=== PATIENT | male | born 1940 | race Caucasian/White ===

== ENCOUNTER 2017-04-13 17:24 | Inpatient (IN) | payer OTHER, MEDICARE ==
[~2017-04-13] VITALS: Ht 175.3 cm; Wt 98.1 kg
[2017-04-13 17:30] VITALS: BP 148/89; PULSE 78; RESP 20; TEMP 98.6; O2SAT 99
--- NOTE | 2017-04-13 18:43 | PD ---
HPI Chief Complaint: Psychiatric Symptoms Time Seen by Provider: 18:37 Travel History International Travel<30 days: No Contact w/Intl Traveler<30days: No Traveled to known affect area: No History of Present Illness HPI 76-year-old male that presents to the ED for evaluation of a correct. Patient was [place] acted by police after apparently he became agitated towards family members. Patient lives with daughter. Daughter believes the patient has early dementia as he has more forgetfulness and he cannot really take care of himself. He has some bruises to his elbow secondary to falls that he's had. He has chronic back pain and he is supposed to get shots on his back next week. He denies any other medical issues. Denies any head injury or loss of consciousness. He denies any suicidal or homicidal ideation. He was sent to [facility] and sent here for evaluation as per [facility] he was outside of their scope of practice. PFSH Past Medical History Medical History: Denies Significant Hx Social History Alcohol Use: No Tobacco Use: No Substance Use: No Allergies-Medications (Allergen,Severity, Reaction): Coded Allergies: No Known Allergies (Unverified , 04/13/17) Review of Systems Except as stated in HPI: all other systems reviewed are Neg Physical Exam Narrative GENERAL: SKIN: Warm and dry. HEAD: Atraumatic. Normocephalic. EYES: Pupils equal and round. No scleral icterus. No injection or drainage. ENT: No nasal bleeding or discharge. Mucous membranes pink and moist. Tongue is mildline. no uvula deviation. NECK: Trachea midline. No JVD. CARDIOVASCULAR: Regular rate and rhythm. No murmurs, S3, S4. RESPIRATORY: No accessory muscle use. Clear to auscultation. Breath sounds equal bilaterally. GASTROINTESTINAL: Abdomen soft, non-tender, nondistended. Hepatic and splenic margins not palpable. MUSCULOSKELETAL: Extremities without clubbing, cyanosis, or edema. No obvious deformities. Full ROM of the upper and lower extremities. 2+ pulses bilaterally. has abrasion and bruising to the elbows bilaterally. Left elbow does have yellow crusting. NEUROLOGICAL: Awake and alert. No obvious cranial nerve deficits. Motor grossly within normal limits. Five out of 5 muscle strength in the arms and legs. Normal speech. PSYCHIATRIC: Appropriate mood and affect; insight and judgment normal. Data Data Last Documented VS Vital Signs Date Time Temp Pulse Resp B/P Pulse Ox O2 Delivery O2 Flow Rate FiO2 04/13/17 19:15 18 04/13/17 17:30 98.6 78 148/89 99 Orders Complete Blood Count With Diff (04/13/17 17:40) Comprehensive Metabolic Panel (04/13/17 17:40) Psych Screen (04/13/17 17:40) Drug Screen, Random Urine (04/13/17 17:40) Alcohol (Ethanol) (04/13/17 17:40) Salicylates (Aspirin) (04/13/17 17:40) Tylenol (Acetaminophen) (04/13/17 17:40) Labs Laboratory Tests Test 04/13/17 17:55 White Blood Count 12.3 TH/MM3 Red Blood Count 3.99 MIL/MM3 Hemoglobin 14.5 GM/DL Hematocrit 41.0 % Mean Corpuscular Volume 103.0 FL Mean Corpuscular Hemoglobin 36.4 PG Mean Corpuscular Hemoglobin 35.4 % Concent Red Cell Distribution Width 12.1 % Platelet Count 174 TH/MM3 Mean Platelet Volume 8.2 FL Neutrophils (%) (Auto) 70.2 % Lymphocytes (%) (Auto) 16.2 % Monocytes (%) (Auto) 12.8 % Eosinophils (%) (Auto) 0.5 % Basophils (%) (Auto) 0.3 % Neutrophils # (Auto) 8.6 TH/MM3 Lymphocytes # (Auto) 2.0 TH/MM3 Monocytes # (Auto) 1.6 TH/MM3 Eosinophils # (Auto) 0.1 TH/MM3 Basophils # (Auto) 0.0 TH/MM3 CBC Comment DIFF FINAL Differential Comment Sodium Level 137 MEQ/L Potassium Level 3.7 MEQ/L Chloride Level 102 MEQ/L Carbon Dioxide Level 25.6 MEQ/L Anion Gap 9 MEQ/L Blood Urea Nitrogen 40 MG/DL Creatinine 1.53 MG/DL Estimat Glomerular Filtration 44 ML/MIN Rate Random Glucose 109 MG/DL Calcium Level 9.2 MG/DL Total Bilirubin 0.8 MG/DL Aspartate Amino Transf 54 U/L (AST/SGOT) Alanine Aminotransferase 35 U/L (ALT/SGPT) Alkaline Phosphatase 74 U/L Total Protein 7.3 GM/DL Albumin 3.3 GM/DL Salicylates Level 2.7 MG/DL Urine Opiates Screen NEG Acetaminophen Level LESS THAN 2.0 MCG/ML Urine Barbiturates Screen NEG Urine Amphetamines Screen NEG Urine Benzodiazepines Screen NEG Urine Cocaine Screen NEG Urine Cannabinoids Screen NEG Ethyl Alcohol Level LESS THAN 3 MG/DL MDM Medical Decision Making Medical Screen Exam Complete: Yes Emergency Medical Condition: Yes Medical Record Reviewed: Yes Interpretation(s) CBC & BMP Diagram 04/13/17 17:55 LFTS WNL Tox negative Differential Diagnosis Depression versus suicidal ideation versus anxiety versus adjustment disorder versus mood disorder versus bipolar disorder versus schizophrenia versus paranoid disorder versus psychosis versus substance abuse versus alcohol abuse versus alcohol induced psychosis versus homicidality addition versus cutting versus personality disorder Narrative Course 76-year-old male that presents to the ED for evaluation of psychiatric illness. Patient was properly examined and was found to have no signs of acute medical distress. Patient chronically uses a cane. Has chronic back pain. He does have abrasions to both of his elbows which appear to be old. Patient states that this is her from falls. The ones on the left arm do appear to be possibly infected. This time I will give prescription for keflex. Patient will be medically clear. Labs were drawn. Okay to be seen by psych. Mental health screening was discussed with the patient. Diagnosis Primary Impression: Aggressive behavior Anthony Morris Apr 13, 2017 18:42
[2017-04-13 18:52] LABS: AUTOMATED NEUTROPHIL # 8.6 TH/MM3 (1.8-7.7); BASOPHIL % 0.3 % (0.0-2.0); EOSINOPHIL # 0.1 TH/MM3 (0-0.4); EOSINOPHIL % 0.5 % (0.0-4.0); HEMO FLAGS DIFF FINAL; LYMPH % 16.2 % (9.0-44.0); MEAN CORPUSCULAR HEMOGLOBIN 36.4 PG (27.0-34.0); MEAN CORPUSCULAR HGB CONC 35.4 % (32.0-36.0); MONO % 12.8 % (0.0-8.0); NEUT % 70.2 % (16.0-70.0); PLATELET COUNT 174 TH/MM3 (150-450); RED BLOOD COUNT 3.99 MIL/MM3 (4.50-5.90); RED CELL DISTRIBUTION WIDTH 12.1 % (11.6-17.2); WHITE BLOOD COUNT 12.3 TH/MM3 (4.0-11.0)
[2017-04-13 18:54] LABS: ALT (GPT) 35 U/L (12-78); ANION GAP 9 MEQ/L (5-15); AST (GOT) 54 U/L (15-37); BICARBONATE 25.6 MEQ/L (21.0-32.0); BLOOD UREA NITROGEN 40 MG/DL (7-18); CHLORIDE 102 MEQ/L (98-107); GLOMERULAR FILTRATION RATE 44 ML/MIN (>89); POTASSIUM 3.7 MEQ/L (3.5-5.1); SODIUM (NA) 137 MEQ/L (136-145)
[2017-04-13 18:56] LABS: ALKALINE PHOSPHATASE 74 U/L (45-117); TOTAL BILIRUBIN ADULT 0.8 MG/DL (0.2-1.0)
[2017-04-13 19:07] LABS: ACETAMINOPHEN LESS THAN 2.0 MCG/ML (10.0-30.0); ALCOHOL LESS THAN 3 MG/DL (0-5)
[2017-04-13] MEDS ORDERED: DIVA500T PO (19:23)
[2017-04-13] MEDS ORDERED: FURO40TA PO (19:23)
[2017-04-13] MEDS ORDERED: ASPI81TA81 (19:23)
[2017-04-13] MEDS ORDERED: DIVALPROEX SODIUM (19:23)
[2017-04-13] MEDS ORDERED: SIMV40TA PO (19:23)
[2017-04-13] MEDS ORDERED: LISI2.5T3 PO (19:23)
[2017-04-13] MEDS ORDERED: POTASSIUM CL (19:23)
[2017-04-13] MEDS ORDERED: CEPH-460 PO (19:24)
[2017-04-13] MEDS ORDERED: MAGNESIUM HYDROXIDE SUSP 30 ML CUP PO PRN (20:00)
[2017-04-13] MEDS ORDERED: LORazepam 2 MG/ML VIAL IM PRN ×2 (20:00)
[2017-04-13] MEDS: NICOTINE 21 MG/24 HR PATCH T-DERMAL SCH (20:00)
[2017-04-13] MEDS ORDERED: ALUMINUM/MAGNESIUM/SIMETH 30 ML CUP PO PRN (20:00)
[2017-04-13] MEDS ORDERED: LORazepam 1 MG TAB PO PRN (20:00)
[2017-04-13] MEDS ORDERED: PILL SPLITTER OTHER PRN (20:00)
[2017-04-13 20:55] VITALS: BP 137/63; PULSE 73; RESP 18; TEMP 98.2
[2017-04-13] MEDS: LISINOPRIL 5 MG TAB PO SCH (23:07)
[2017-04-13] MEDS: CEPHALEXIN MONOHYDRATE 500 MG CAP PO SCH (23:07)
[2017-04-13] MEDS: DIVALPROEX DR 500 MG TABEC PO SCH (23:07)
[2017-04-13] MEDS: PRAVASTATIN SOD 80 MG TAB PO SCH (23:07)
[2017-04-13] MEDS: FUROSEMIDE 40 MG TAB PO SCH (23:09)
[2017-04-14] MEDS: CEPHALEXIN MONOHYDRATE 500 MG CAP PO SCH ×3 (05:55→20:18)
[2017-04-14 06:20] VITALS: BP 121/59; PULSE 69; RESP 18; TEMP 98.1; O2SAT 95
[2017-04-14] MEDS: DIVALPROEX DR 500 MG TABEC PO SCH ×2 (09:14→20:16)
[2017-04-14] MEDS: FUROSEMIDE 40 MG TAB PO SCH (09:14)
[2017-04-14] MEDS: LISINOPRIL 5 MG TAB PO SCH (09:15)
[2017-04-14] MEDS: NICOTINE 21 MG/24 HR PATCH T-DERMAL SCH (09:15)
[2017-04-14 11:32] LABS: ANION GAP 8 MEQ/L (5-15); BLOOD UREA NITROGEN 43 MG/DL (7-18); CHLORIDE 102 MEQ/L (98-107); GLOMERULAR FILTRATION RATE 58 ML/MIN (>89); HDL CHOLESTEROL 46.2 MG/DL (40.0-60.0); LDL CHOLESTEROL 53 MG/DL (0-99); SODIUM (NA) 137 MEQ/L (136-145)
[2017-04-14 11:33] LABS: POTASSIUM 3.9 MEQ/L (3.5-5.1)
[2017-04-14 17:25] LABS: HEMOGLOBIN F 0.8 %; HEMOGLOBIN LA1C 2.1 %
--- NOTE | 2017-04-14 17:32 | PD.CONS ---
HPI Service [facility] Consult Requested By Psychiatric team Reason for Consult Second opinion patient with hypertension, seizure history and hyperlipidemia Primary Care Physician Unknown Diagnoses: History of Present Illness Written by Pamela Sanchez, acting as scribe for Dr. Yanez on 04/14/17 at 17:17. This is a 76-year-old male patient with past medical history which includes hypertension, seizure disorder (last seizure one month ago) and hyperlipidemia. Patient is currently an inpatient psychiatric center we have been consulted for assistance with second opinion. Patient is a poor historian and information gathered from patient as well as prior computerized charting. Patient reports he has had a recent fall approximately 2-3 nights ago fell out of bed causing increased lower back pain. Patient denies loss of consciousness or head trauma during the fall. Patient reports he's been seeing an outpatient pain management doctor was supposed to begin spinal injections next week. Patient reports he is currently having lower back pain moderate in severity. Patient reports this is his baseline. Patient describes pain as constant and aching worse with certain movements. Patient denies urinary N or bowel incontinence. No focal weakness. Patient denies shortness of breath chest pain nausea vomiting diarrhea constipation fevers or chills. Review of Systems ROS Limitations: Poor Historian Except as stated in HPI: all other systems reviewed are Neg Past Family Social History Allergies: Coded Allergies: No Known Allergies (Unverified , 04/13/17) Past Medical History hypertension, seizure disorder and hyperlipidemia Past Surgical History Umbilical hernia repair Reported Medications Keflex (Cephalexin) 500 Mg Cap 500 Mg PO Q8H 10 Days Aspir-81 (Aspirin) 81 Mg Tabdr Simvastatin 40 Mg Tab 40 Mg PO HS Lisinopril 2.5 Mg Tab 2.5 Mg PO DAILY Furosemide 40 Mg Tab 40 Mg PO DAILY Divalproex DR (Divalproex Sodium) 500 Mg Tabdr 500 Mg PO BID [Divalproex Sodium] 500 Mg TID [Potassium Cl] 10 Meq Active Ordered Medications Current Medications Medications (Trade) Dose Ordered Sig/Juan Miguel Route Start Time Stop Time Status Last Admin (Keflex) 500 mg Q8HR PO 04/13/17 22:00 04/14/17 14:10 (Depakote Dr) 500 mg BID PO 04/13/17 21:00 04/14/17 09:14 (Lasix) 40 mg DAILY PO 04/13/17 20:00 04/14/17 09:14 (Prinivil) 2.5 mg DAILY PO 04/13/17 20:00 04/14/17 09:15 (Pravachol) 80 mg HS PO 04/13/17 21:00 04/13/17 23:07 (Ativan) 0.5 mg Q12H PRN PO 04/13/17 20:00 (Ativan Inj) 0.5 mg Q12H PRN IM 04/13/17 20:00 (Tylenol) 650 mg Q4H PRN PO 04/13/17 20:00 (Milk Of Magnesia Liq) 30 ml DAILY PRN PO 04/13/17 20:00 (Mag-Al Plus Susp Liq) 30 ml Q6H PRN PO 04/13/17 20:00 (Habitrol 21 Mg Patch.24 Hr) 1 patch DAILY T-DERMAL 04/13/17 20:00 04/14/17 09:15 (Pill Splitter) 1 ea UNSCH PRN OTHER 04/13/17 20:00 (Ultram) 50 mg Q8H PRN PO 04/14/17 17:00 UNV Family History Denies family medical history including diabetes heart disease or CVA Social History EtOH use occasional beer not on a daily basis Tobacco use one pack per day Denies illicit drug use Physical Exam Vital Signs Vital Signs Date Time Temp Pulse Resp B/P Pulse Ox O2 Delivery O2 Flow Rate FiO2 04/14/17 06:20 98.1 69 18 121/59 95 04/13/17 20:55 98.2 73 18 137/63 04/13/17 19:15 18 04/13/17 17:30 98.6 78 20 148/89 99 Physical Exam GENERAL: This is a well-nourished, well-developed patient, in no apparent distress. SKIN: Bilateral upper extremity scattered ecchymotic areas. Skin tear left elbow with yellow crusting appearance HEAD: Atraumatic. Normocephalic. No temporal or scalp tenderness. EYES: Extraocular motions intact. No scleral icterus. No injection or drainage. ENT: Nose without bleeding, purulent drainage or septal hematoma. Throat without erythema, tonsillar hypertrophy or exudate. Uvula midline. Airway patent. NECK: Trachea midline. No JVD or lymphadenopathy. Supple, nontender, no meningeal signs. CARDIOVASCULAR: Regular rate and rhythm without murmurs, gallops, or rubs. RESPIRATORY: Clear to auscultation. Breath sounds equal bilaterally. No wheezes , rales, or rhonchi. GASTROINTESTINAL: Abdomen soft, non-tender, nondistended. No guarding. MUSCULOSKELETAL: Bilateral lower extremities 2+ pitting edema right greater than left NEUROLOGICAL: Awake and alert. No focal deficits appreciated. Motor and sensory grossly within normal limits. 4 out of 5 muscle strength in all muscle groups. Normal speech. Laboratory Laboratory Tests Test 04/13/17 04/14/17 17:55 09:37 White Blood Count 12.3 Red Blood Count 3.99 Hemoglobin 14.5 Hematocrit 41.0 Mean Corpuscular Volume 103.0 Mean Corpuscular Hemoglobin 36.4 Mean Corpuscular Hemoglobin 35.4 Concent Red Cell Distribution Width 12.1 Platelet Count 174 Mean Platelet Volume 8.2 Neutrophils (%) (Auto) 70.2 Lymphocytes (%) (Auto) 16.2 Monocytes (%) (Auto) 12.8 Eosinophils (%) (Auto) 0.5 Basophils (%) (Auto) 0.3 Neutrophils # (Auto) 8.6 Lymphocytes # (Auto) 2.0 Monocytes # (Auto) 1.6 Eosinophils # (Auto) 0.1 Basophils # (Auto) 0.0 CBC Comment DIFF FINAL Differential Comment Sodium Level 137 137 Potassium Level 3.7 3.9 Chloride Level 102 102 Carbon Dioxide Level 25.6 27.0 Anion Gap 9 8 Blood Urea Nitrogen 40 43 Creatinine 1.53 1.22 Estimat Glomerular Filtration 44 58 Rate Random Glucose 109 141 Calcium Level 9.2 9.0 Total Bilirubin 0.8 Aspartate Amino Transf 54 (AST/SGOT) Alanine Aminotransferase 35 (ALT/SGPT) Alkaline Phosphatase 74 Total Protein 7.3 Albumin 3.3 Salicylates Level 2.7 Urine Opiates Screen NEG Acetaminophen Level LESS THAN 2.0 Urine Barbiturates Screen NEG Urine Amphetamines Screen NEG Urine Benzodiazepines Screen NEG Urine Cocaine Screen NEG Urine Cannabinoids Screen NEG Ethyl Alcohol Level LESS THAN 3 Triglycerides Level 145 Cholesterol Level 128 LDL Cholesterol 53 HDL Cholesterol 46.2 Cholesterol/HDL Ratio 2.77 Result Diagram: 04/13/17 1755 04/14/17 0937 Assessment and Plan Assessment and Plan This is a 76-year-old male patient with past medical history which includes hypertension, seizure disorder and hyperlipidemia. Patient is currently an inpatient psychiatric center we have been consulted for assistance with second opinion. Patient is a poor historian and information gathered from patient as well as prior computerized charting. Patient reports he has had a recent fall approximately 2-3 nights ago fell out of bed causing increased lower back pain. Patient denies loss of consciousness or head trauma during the fall. Patient reports he's been seeing an outpatient pain management doctor was supposed to begin spinal injections next week. Patient reports he is currently having lower back pain moderate in severity. Patient reports this is his baseline. Patient describes pain as constant and aching worse with certain movements. Patient denies urinary or bowel incontinence. No focal weakness. Patient denies shortness of breath chest pain nausea vomiting diarrhea constipation fevers or chills. Adjustment disorder Management per psychiatric team Bilateral lower extremity edema Ultrasound bilateral lower extremities to rule out DVT Lower back pain chronic Start tramadol as needed for pain Recent fall Check CK Acute kidney injury versus chronic kidney disease creatinine 1.53 --> 1.22 Renal ultrasound Urinalysis C&S if indicated Hypertension- stable Continue lisinopril Monitor blood pressure dressing Seizure disorder Continue Divalproex Hyperlipidemia- chronic Continue simvastatin DVT prophylaxis encourage ambulation Discussed with patient nursing This note was transcribed by naveen Sanchez. I, Dr. Jah Pena personally performed the history, physical exam, and medical decision making; and confirmed the accuracy of the information in the transcribed note. Authenticated by Dr. Jah Pena on 04/14/17 at 17:36. Pamela Sanchez Apr 14, 2017 17:32 Jah Silva MD Apr 14, 2017 23:13
[2017-04-14 17:46] LABS: HEMOGLOBIN A1a 0.8 %; HEMOGLOBIN A1b 0.9 %
[2017-04-14 17:47] LABS: HEMOGLOBIN Ao 85.7 %; HEMOGLOBIN P3 5.1 %
[2017-04-14 18:10] VITALS: BP 130/60; PULSE 67; RESP 18; TEMP 97.7; O2SAT 86
[2017-04-14 19:06] LABS: CKMB 4.7 NG/ML (0.5-3.6)
[2017-04-14] MEDS: PRAVASTATIN SOD 80 MG TAB PO SCH (20:17)
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
[2017-04-15] MEDS: CEPHALEXIN MONOHYDRATE 500 MG CAP PO SCH ×3 (05:27→21:50)
[2017-04-15 06:18] VITALS: BP 129/63; PULSE 69; RESP 18; TEMP 97.4; O2SAT 95
[2017-04-15] MEDS: NICOTINE 21 MG/24 HR PATCH T-DERMAL SCH (09:00)
[2017-04-15] MEDS: DIVALPROEX DR 500 MG TABEC PO SCH ×3 (10:11→21:50)
[2017-04-15] MEDS: LISINOPRIL 5 MG TAB PO SCH (10:12)
[2017-04-15] MEDS: FUROSEMIDE 40 MG TAB PO SCH (10:12)
--- NOTE | 2017-04-15 12:15 | RADRPT ---
EXAM DATE/TIME: 04/15/2017 10:41 [place] COMPARISON: No previous studies available for comparison. INDICATIONS : Increased BUN/ Creatnine. MEDICAL HISTORY : Hypertension. Seizures. Glasses. SURGICAL HISTORY : Abdominal surgery. ENCOUNTER: Initial ACUITY: 1 day PAIN SCORE: 2/10 LOCATION: Bilateral flank MEASUREMENTS: RIGHT KIDNEY: 12.3 x 5.7 x 6.1 cm LEFT KIDNEY: 13.8 x 5.4 x 6.5 cm FINDINGS: RIGHT KIDNEY: Renal cortex is normal in thickness and echotexture. No hydronephrosis, stone, or mass. LEFT KIDNEY: Renal cortex is normal in thickness and echotexture. No hydronephrosis, stone, or mass. BLADDER: Was not visualized or evaluated and appears empty. CONCLUSION: 1. The kidneys are unremarkable in appearance. There is no hydronephrosis. 2. Bladder was not visualized or evaluated. Gen Giles MD on April 15, 2017 at 12:13 Board Certified Radiologist. This report was verified electronically.
--- NOTE | 2017-04-15 12:16 | RADRPT ---
EXAM DATE/TIME: 04/15/2017 10:51 [place] COMPARISON: US KIDNEY/RENAL/BLADDER, April 15, 2017, 10:41. INDICATIONS : Right leg swelling. MEDICAL HISTORY : Seizures. Hypertension. Glasses. SURGICAL HISTORY : Abdominal surgery. ENCOUNTER: Initial ACUITY: 1 day PAIN SCORE: 3/10 LOCATION: Right leg. TECHNIQUE: Venous ultrasound of the leg was performed from the inguinal ligament to the proximal calf. Real-aurelio e, color Doppler and spectral tracing, compression and augmentation techniques were used. FINDINGS: There is normal compressibility of the deep venous system from the inguinal region to the proximal ca lf. No echogenic clot is seen in the lumen of the common femoral, femoral, popliteal, and posterior tibial veins. There is a normal response of the venous system to proximal and distal augmentation an d respiration. CONCLUSION: 1. No DVT identified. Aime Marshall MD on April 15, 2017 at 12:14 Board Certified Radiologist. This report was verified electronically.
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
--- NOTE | 2017-04-15 16:48 | HHI.PYPN ---
Subjective Remarks Patient seen for follow-up, chart reviewed. Patient found sitting in hospital chair, states that he usually sleeps in a chair due to his chronic back pain and is unable to lie down. Patient reports a been feeling okay, denies any depressive manic or psychotic symptoms. Patient states that he is dissatisfied with his daughter stating that she blames him for everything. Patient unsure at this time with a he will be able to return back home to his and daughter and is considering perhaps moving up to [place] where he states he has a home. Patient denies SI, HI, AVH or delusions. Review of Systems Except as stated in HPI: all other systems reviewed are Neg Objective Alert: Yes [place]: Person, Place, Situation Mood: Calm Affect: Appropriate Memory Intact: Comment (impaired) Hallucinations: Other (denies) Delusions: No Delusion Type: Other (denies) Suicidal: Ideation (denies) Homicidal: Ideation (denies) Insight/Judgment Limited insight, fair impulse control and judgment Labs Labs reviewed. Test 04/15/17 10:26 Vitamin B12 Level 1710 PG/ML Folate GREATER THAN 20.0 NG/ML Vitals/IOs Vital Signs Date Time Temp Pulse Resp B/P Pulse Ox O2 Delivery O2 Flow Rate FiO2 04/15/17 06:18 97.4 69 18 129/63 95 Assessment & Plan Problem List: (1) DEMENTIA IN OTH DISEASES CLASSD ELSWHR W BEHAVIORAL DISTURB ICD Code: F02.81 Assessment & Plan Patient at this time has no behavioral dyscontrol since admission to the unit. Patient has a compliant with medications with no adverse drug reactions. No significant mood symptoms or psychotic symptoms noted. Patient to continue current treatment discharge planning in progress Justification for Cont. Inpt. Patient at risk for further decompensation if at lower level of care. Discharge Planning In progress Dane Angeles MD Apr 15, 2017 16:48
--- NOTE | 2017-04-15 18:59 | HHI.PR ---
Subjective Remarks Denies cp/sob ambulating with walker denies fevers and chills Objective Vitals Vital Signs Date Time Temp Pulse Resp B/P Pulse Ox O2 Delivery O2 Flow Rate FiO2 04/15/17 06:18 97.4 69 18 129/63 95 Result Diagram: 04/13/17 1755 04/14/17 0937 Imaging Last Impressions Renal Ultrasound 04/15/17 0000 Signed Impressions: Service Date/Time: Saturday, April 15, 2017 10:41 - CONCLUSION: 1. The kidneys are unremarkable in appearance. There is no hydronephrosis. 2. Bladder was not visualized or evaluated. Gen Giles MD Lower Extremity Ultrasound 04/15/17 0000 Signed Impressions: Service Date/Time: Saturday, April 15, 2017 10:51 - CONCLUSION: 1. No DVT identified. Aime Marshall MD Objective Remarks GENERAL: This is a well-nourished, well-developed patient, in no apparent distress. SKIN: Bilateral upper extremity scattered ecchymotic areas. Skin tear left elbow with yellow crusting appearance HEAD: Atraumatic. Normocephalic. No temporal or scalp tenderness. EYES: Extraocular motions intact. No scleral icterus. No injection or drainage. ENT: Nose without bleeding, purulent drainage or septal hematoma. Throat without erythema, tonsillar hypertrophy or exudate. Uvula midline. Airway patent. NECK: Trachea midline. No JVD or lymphadenopathy. Supple, nontender, no meningeal signs. CARDIOVASCULAR: Regular rate and rhythm without murmurs, gallops, or rubs. RESPIRATORY: Clear to auscultation. Breath sounds equal bilaterally. No wheezes , rales, or rhonchi. GASTROINTESTINAL: Abdomen soft, non-tender, nondistended. No guarding. MUSCULOSKELETAL: Bilateral lower extremities 2+ pitting edema right greater than left NEUROLOGICAL: Awake and alert. No focal deficits appreciated. Motor and sensory grossly within normal limits. 4 out of 5 muscle strength in all muscle groups. Normal speech. Medications and IVs Current Medications Medications (Trade) Dose Ordered Sig/Juan Miguel Route Start Time Stop Time Status Last Admin (Keflex) 500 mg Q8HR PO 04/13/17 22:00 04/15/17 14:12 (Depakote Dr) 500 mg BID PO 04/13/17 21:00 8/18/17 10:11 (Lasix) 40 mg DAILY PO 04/13/17 20:00 04/15/17 10:12 (Prinivil) 2.5 mg DAILY PO 04/13/17 20:00 04/15/17 10:12 (Pravachol) 80 mg HS PO 04/13/17 21:00 04/14/17 20:17 (Ativan) 0.5 mg Q12H PRN PO 04/13/17 20:00 (Ativan Inj) 0.5 mg Q12H PRN IM 04/13/17 20:00 (Tylenol) 650 mg Q4H PRN PO 04/13/17 20:00 (Milk Of Magnesia Liq) 30 ml DAILY PRN PO 04/13/17 20:00 (Mag-Al Plus Susp Liq) 30 ml Q6H PRN PO 04/13/17 20:00 (Habitrol 21 Mg Patch.24 Hr) 1 patch DAILY T-DERMAL 04/13/17 20:00 04/15/17 09:00 (Pill Splitter) 1 ea UNSCH PRN OTHER 04/13/17 20:00 (Ultram) 50 mg Q8H PRN PO 04/14/17 17:00 A/P Assessment and Plan This is a 76-year-old male patient with past medical history which includes hypertension, seizure disorder and hyperlipidemia. Patient is currently an inpatient psychiatric center we have been consulted for assistance with second opinion. Patient is a poor historian and information gathered from patient as well as prior computerized charting. Patient reports he has had a recent fall approximately 2-3 nights ago fell out of bed causing increased lower back pain. Patient denies loss of consciousness or head trauma during the fall. Patient reports he's been seeing an outpatient pain management doctor was supposed to begin spinal injections next week. Patient reports he is currently having lower back pain moderate in severity. Patient reports this is his baseline. Patient describes pain as constant and aching worse with certain movements. Patient denies urinary or bowel incontinence. No focal weakness. Patient denies shortness of breath chest pain nausea vomiting diarrhea constipation fevers or chills. Adjustment disorder Management per psychiatric team Bilateral lower extremity edema Ultrasound bilateral lower extremities to rule out DVT ---> negative Lower back pain chronic Start tramadol as needed for pain Rhabdomyolysis Due to recent fall - encourage po intake. Continue to monitor CK Acute kidney injury versus chronic kidney disease creatinine 1.53 --> 1.22 Renal ultrasound - no hydronephrosis Encourage po intake Urinalysis C&S if indicated Hypertension- stable Continue lisinopril Monitor blood pressure dressing Seizure disorder Continue Divalproex Hyperlipidemia- chronic Continue simvastatin DVT prophylaxis encourage ambulation Jah Silva MD Apr 15, 2017 18:59
[2017-04-15 20:18] VITALS: BP 138/60; PULSE 85; RESP 17; TEMP 97.9; O2SAT 96
[2017-04-15 21:48] LABS: HEMATOCRIT 38.2 % (39.0-51.0); MEAN CELL VOLUME 102.5 FL (80.0-100.0); MEAN CORPUSCULAR HEMOGLOBIN 36.4 PG (27.0-34.0); MEAN CORPUSCULAR HGB CONC 35.5 % (32.0-36.0); PLATELET COUNT 183 TH/MM3 (150-450); RED BLOOD COUNT 3.73 MIL/MM3 (4.50-5.90); RED CELL DISTRIBUTION WIDTH 12.1 % (11.6-17.2); REVIEW FLAG FINAL
[2017-04-15] MEDS: PRAVASTATIN SOD 80 MG TAB PO SCH (21:50)
[2017-04-15 22:09] LABS: ANION GAP 7 MEQ/L (5-15); AST (GOT) 63 U/L (15-37); BICARBONATE 28.2 MEQ/L (21.0-32.0); BLOOD UREA NITROGEN 42 MG/DL (7-18); CHLORIDE 103 MEQ/L (98-107); GLOMERULAR FILTRATION RATE 101 ML/MIN (>89); POTASSIUM 3.6 MEQ/L (3.5-5.1); SODIUM (NA) 138 MEQ/L (136-145)
[2017-04-15 22:13] LABS: ALKALINE PHOSPHATASE 70 U/L (45-117); ALT (GPT) 58 U/L (12-78); CREATINE KINASE 617 U/L (39-308); TOTAL BILIRUBIN ADULT 0.5 MG/DL (0.2-1.0)
[2017-04-15 22:31] LABS: CKMB 2.5 NG/ML (0.5-3.6)
[2017-04-16] MEDS: LORazepam 0.5 MG TAB PO PRN (01:04)
[2017-04-16 05:16] VITALS: BP 114/67; PULSE 45; RESP 18; TEMP 97.6; O2SAT 95
[2017-04-16] MEDS: CEPHALEXIN MONOHYDRATE 500 MG CAP PO SCH ×3 (06:21→21:28)
[2017-04-16] MEDS: NICOTINE 21 MG/24 HR PATCH T-DERMAL SCH (08:21)
[2017-04-16] MEDS: DIVALPROEX DR 500 MG TABEC PO SCH ×2 (08:21→21:28)
[2017-04-16] MEDS: LISINOPRIL 5 MG TAB PO SCH (08:21)
[2017-04-16] MEDS: FUROSEMIDE 40 MG TAB PO SCH (08:22)
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
[2017-04-16 17:00] VITALS: BP 132/63; PULSE 83; RESP 16; TEMP 98.7; O2SAT 92
[2017-04-16 18:52] LABS: CKMB 4.6 NG/ML (0.5-3.6)
[2017-04-16] MEDS: PRAVASTATIN SOD 80 MG TAB PO SCH (21:28)
[2017-04-17] MEDS: LORazepam 0.5 MG TAB PO PRN (00:55)
[2017-04-17] MEDS: CEPHALEXIN MONOHYDRATE 500 MG CAP PO SCH ×3 (06:42→21:32)
[2017-04-17] MEDS: DIVALPROEX DR 500 MG TABEC PO SCH ×2 (08:35→21:31)
[2017-04-17] MEDS: FUROSEMIDE 40 MG TAB PO SCH (08:35)
[2017-04-17] MEDS: NICOTINE 21 MG/24 HR PATCH T-DERMAL SCH (08:35)
[2017-04-17] MEDS: LISINOPRIL 5 MG TAB PO SCH (08:35)
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
[2017-04-17 18:32] VITALS: BP 136/72; PULSE 86; RESP 17; TEMP 97.7; O2SAT 98
[2017-04-17] MEDS: PRAVASTATIN SOD 80 MG TAB PO SCH (21:31)
[2017-04-18] MEDS: traMADol HCL 50 MG TAB PO PRN (00:35)
[2017-04-18 06:02] VITALS: BP 100/58; PULSE 77; RESP 17; TEMP 97.4; O2SAT 97
[2017-04-18] MEDS: CEPHALEXIN MONOHYDRATE 500 MG CAP PO SCH ×3 (06:25→21:32)
[2017-04-18] MEDS: DIVALPROEX DR 500 MG TABEC PO SCH ×2 (09:24→21:32)
[2017-04-18] MEDS: FUROSEMIDE 40 MG TAB PO SCH (09:24)
[2017-04-18] MEDS: NICOTINE 21 MG/24 HR PATCH T-DERMAL SCH (09:24)
[2017-04-18] MEDS: LISINOPRIL 5 MG TAB PO SCH (09:25)
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
[2017-04-18 19:48] VITALS: BP 140/63; PULSE 67; RESP 16; TEMP 98; O2SAT 95
[2017-04-18] MEDS: PRAVASTATIN SOD 80 MG TAB PO SCH (21:32)
--- NOTE | 2017-04-18 21:55 | HHI.PR ---
Subjective Remarks deferred entry - patient seen at 4:10 pm patient denies any complaints denies cp/sob has good appetite vital signs are stable Objective Vitals Vital Signs Date Time Temp Pulse Resp B/P (MAP) Pulse Ox O2 Delivery O2 Flow Rate FiO2 04/18/17 19:48 98.0 67 16 140/63 (88) 95 04/18/17 06:02 97.4 77 17 100/58 (72) 97 Result Diagram: 04/15/17212104/15/172121 Imaging Last Impressions Renal Ultrasound 04/15/17 0000 Signed Impressions: Service Date/Time: Saturday, April 15, 2017 10:41 - CONCLUSION: 1. The kidneys are unremarkable in appearance. There is no hydronephrosis. 2. Bladder was not visualized or evaluated. Gen Giles MD Lower Extremity Ultrasound 04/15/17 0000 Signed Impressions: Service Date/Time: Saturday, April 15, 2017 10:51 - CONCLUSION: 1. No DVT identified. Aime Marshall MD Objective Remarks GENERAL: This is a well-nourished, well-developed patient, in no apparent distress. SKIN: Bilateral upper extremity scattered ecchymotic areas. Skin tear left elbow with yellow crusting appearance HEAD: Atraumatic. Normocephalic. No temporal or scalp tenderness. EYES: Extraocular motions intact. No scleral icterus. No injection or drainage. ENT: Nose without bleeding, purulent drainage or septal hematoma. Throat without erythema, tonsillar hypertrophy or exudate. Uvula midline. Airway patent. NECK: Trachea midline. No JVD or lymphadenopathy. Supple, nontender, no meningeal signs. CARDIOVASCULAR: Regular rate and rhythm without murmurs, gallops, or rubs. RESPIRATORY: Clear to auscultation. Breath sounds equal bilaterally. No wheezes , rales, or rhonchi. GASTROINTESTINAL: Abdomen soft, non-tender, nondistended. No guarding. MUSCULOSKELETAL: Bilateral lower extremities 2+ pitting edema right greater than left NEUROLOGICAL: Awake and alert. No focal deficits appreciated. Motor and sensory grossly within normal limits. 5 out of 5 muscle strength in all muscle groups. Normal speech. Medications and IVs Current Medications Medications (Trade) Dose Ordered Sig/Juan Miguel Route Start Time Stop Time Status Last Admin (Keflex) 500 mg Q8HR PO 04/13/17 22:00 04/18/17 21:32 (Depakote Dr) 500 mg BID PO 04/13/17 21:00 04/18/17 21:32 (Lasix) 40 mg DAILY PO 04/13/17 20:00 04/18/17 09:24 (Prinivil) 2.5 mg DAILY PO 04/13/17 20:00 04/18/17 09:25 (Pravachol) 80 mg HS PO 04/13/17 21:00 04/18/17 21:32 (Ativan) 0.5 mg Q12H PRN PO 04/13/17 20:00 04/17/17 00:55 (Ativan Inj) 0.5 mg Q12H PRN IM 04/13/17 20:00 (Tylenol) 650 mg Q4H PRN PO 04/13/17 20:00 (Milk Of Magnesia Liq) 30 ml DAILY PRN PO 04/13/17 20:00 (Mag-Al Plus Susp Liq) 30 ml Q6H PRN PO 04/13/17 20:00 (Habitrol 21 Mg Patch.24 Hr) 1 patch DAILY T-DERMAL 04/13/17 20:00 04/18/17 09:24 (Pill Splitter) 1 ea UNSCH PRN OTHER 04/13/17 20:00 (Ultram) 50 mg Q8H PRN PO 04/14/17 17:00 Future hold 04/18/17 00:35 (SEROquel) 12.5 mg BID PO 04/18/17 21:45 A/P Problem List: (1) DEMENTIA IN OTH DISEASES CLASSD ELSWHR W BEHAVIORAL DISTURB ICD Code: F02.81 - DEMENTIA IN OTH DISEASES CLASSD ELSWHR W BEHAVIORAL DISTURB Status: Acute (2) HTN (hypertension) ICD Code: I10 - Essential (primary) hypertension Status: Chronic (3) Hyperlipidemia ICD Code: E78.5 - Hyperlipidemia, unspecified Status: Chronic (4) Rhabdomyolysis ICD Code: M62.82 - Rhabdomyolysis Status: Resolved (5) Bilateral lower extremity edema ICD Code: R60.0 - Localized edema Status: Chronic Assessment and Plan This is a 76-year-old male patient with past medical history which includes hypertension, seizure disorder and hyperlipidemia. Patient is currently an inpatient psychiatric center we have been consulted for assistance with second opinion. Patient is a poor historian and information gathered from patient as well as prior computerized charting. Patient reports he has had a recent fall approximately 2-3 nights ago fell out of bed causing increased lower back pain. Patient denies loss of consciousness or head trauma during the fall. Patient reports he's been seeing an outpatient pain management doctor was supposed to begin spinal injections next week. Patient reports he is currently having lower back pain moderate in severity. Patient reports this is his baseline. Patient describes pain as constant and aching worse with certain movements. Patient denies urinary or bowel incontinence. No focal weakness. Patient denies shortness of breath chest pain nausea vomiting diarrhea constipation fevers or chills. Adjustment disorder Management per psychiatric team. Bilateral lower extremity edema Ultrasound bilateral lower extremities to rule out DVT ---> negative Continue furosemide 40 mg po daily Lower back pain chronic Continue tramadol - pain controlled Rhabdomyolysis Due to recent fall - encourage po intake. Continue to monitor CK 04/18 CK down to normal. Hypertension- stable Continue lisinopril Monitor blood pressure dressing Seizure disorder Continue Divalproex No seizure episode Hyperlipidemia- chronic Continue simvastatin DVT prophylaxis encourage ambulation Discharge Planning I will sign off - please reconsult as needed. Jah Silva MD Apr 18, 2017 21:55
[2017-04-18] MEDS: QUEtiapine FUMARATE 25 MG TAB PO SCH (23:39)
[2017-04-19 05:53] VITALS: BP 116/58; PULSE 67; RESP 16; TEMP 98.5; O2SAT 96
[2017-04-19] MEDS: CEPHALEXIN MONOHYDRATE 500 MG CAP PO SCH ×3 (06:15→20:56)
[2017-04-19] MEDS: DIVALPROEX DR 500 MG TABEC PO SCH ×2 (09:00→20:50)
[2017-04-19] MEDS: QUEtiapine FUMARATE 25 MG TAB PO SCH ×2 (09:01→20:49)
[2017-04-19] MEDS: FUROSEMIDE 40 MG TAB PO SCH (09:01)
[2017-04-19] MEDS: NICOTINE 21 MG/24 HR PATCH T-DERMAL SCH (09:01)
[2017-04-19] MEDS: LISINOPRIL 5 MG TAB PO SCH (09:01)
--- NOTE | 2017-04-19 14:51 | HHI.PYPN ---
Subjective Remarks Patient seen for follow-up, chart reviewed. Patient found sitting in common area watching TV able to engage in interview today. Patient states that he had slept well last evening and was able to feel rested this morning. Patient states that he continues to feel upset that his family put him in the hospital. Stating "I'm disturbed by what happened. Patient states that he feels that his daughter put him here in the hospital and would like to speak to her as he states he feels hurt about all this. Patient reports feeling okay, denies any SI, HI, AVH or delusions. Patient reports tolerating medications well. Review of Systems Except as stated in HPI: all other systems reviewed are Neg Objective Alert: Yes [place]: Person, Place, Date Mood: Calm Affect: Appropriate Memory Intact: Comment (impaired) Hallucinations: Other (denies) Delusions: No Delusion Type: Other (denies) Suicidal: Ideation (denies) Homicidal: Ideation Insight/Judgment Limited insight, fair impulse control, and judgment Labs Laboratory Tests Test 04/16/17 18:00 04/18/17 07:45 Total Creatine Kinase 432 U/L (39-308) Creatine Kinase MB 4.6 NG/ML (0.5-3.6) Vitals/IOs Vital Signs Date Time Temp Pulse Resp B/P (MAP) Pulse Ox O2 Delivery O2 Flow Rate FiO2 04/19/17 05:53 98.5 67 16 116/58 (77) 96 Assessment & Plan Problem List: (1) DEMENTIA IN OTH DISEASES CLASSD ELSWHR W BEHAVIORAL DISTURB ICD Codes: F02.81 - DEMENTIA IN OTH DISEASES CLASSD ELSWHR W BEHAVIORAL DISTURB Status: Acute Assessment & Plan Patient seen for follow, chart review. Patient noted to be calm and cooperative with staff no behavioral disturbances since admission. Patient tolerating initiation of quetiapine since last evening. Denies any adverse drug reactions. Patient also noted to have not had about away in the past 3 days will add Colace 100 mg at bedtime. Continue current treatment. Collateral pending from family. Discharge planning in progress Justification for Cont. Inpt. Patient at risk for further decompensation if at a lower level of care Dane Angeles MD Apr 19, 2017 14:51
[2017-04-19] MEDS: ACETAMINOPHEN 325 MG TAB PO PRN (17:02)
[2017-04-19 18:04] VITALS: BP 122/66; PULSE 77; RESP 17; TEMP 98.2; O2SAT 96
[2017-04-19] MEDS: PRAVASTATIN SOD 80 MG TAB PO SCH (20:49)
[2017-04-19] MEDS: DOCUSATE SODIUM 100 MG CAP PO SCH (20:50)
[2017-04-20 05:58] VITALS: BP 125/56; PULSE 71; RESP 20; TEMP 97.5; O2SAT 97
[2017-04-20] MEDS: CEPHALEXIN MONOHYDRATE 500 MG CAP PO SCH ×3 (06:15→21:20)
[2017-04-20] MEDS: FUROSEMIDE 40 MG TAB PO SCH (08:44)
[2017-04-20] MEDS: LISINOPRIL 5 MG TAB PO SCH (08:44)
[2017-04-20] MEDS: QUEtiapine FUMARATE 25 MG TAB PO SCH ×2 (08:44→21:21)
[2017-04-20] MEDS: DIVALPROEX DR 500 MG TABEC PO SCH ×2 (08:45→21:21)
[2017-04-20] MEDS: NICOTINE 21 MG/24 HR PATCH T-DERMAL SCH (08:45)
--- NOTE | 2017-04-20 13:51 | HHI.PYPN ---
Subjective Remarks Patient seen for follow-up, chart reviewed. After discussion with nursing staff patient noted to be in and out of his room, pleasant, called and spoke to nurse yesterday stating that he did not want him back home and that he had threatened to kill his daughter. Patient found sitting on hospital bed states feeling "so-so". Patient states that he continues to feel displease with his daughter and states that her daughter continually ataxia an argument with him and for the past couple of weeks. She states that he is feeling that his daughter has plotted to have patient hospitalized. Patient reports tolerating medication well and denies any adverse drug reactions. She denies any physical complaints at this time. Denies SI, HI, AVH or delusions. Review of Systems Except as stated in HPI: all other systems reviewed are Neg Objective Alert: Yes [place]: Person, Place, Date Mood: Calm Affect: Appropriate Memory Intact: Comment (impaired) Hallucinations: Other (denies) Delusions: No Delusion Type: Other (denies) Suicidal: Ideation (denies) Homicidal: Ideation Insight/Judgment Poor insight, fair impulse control and limited judgment Vitals/IOs Vital Signs Date Time Temp Pulse Resp B/P (MAP) Pulse Ox O2 Delivery O2 Flow Rate FiO2 04/20/17 05:58 97.5 71 20 125/56 (79) 97 Assessment & Plan Problem List: (1) DEMENTIA IN OTH DISEASES CLASSD ELSWHR W BEHAVIORAL DISTURB ICD Codes: F02.81 - DEMENTIA IN OTH DISEASES CLASSD ELSWHR W BEHAVIORAL DISTURB Status: Acute Assessment & Plan Patient at this time has not had any behavioral control since admission on this unit. Has been cooperative with staff, although noted to be worried and upset that he is in the hospital mainly directed at his daughter. Continue current treatment. Patient will be presented to mental health court tomorrow for petition for involuntary admission. Continue current treatment. Patient as per collateral cannot return back home and other options at this time will be to be explored. Discharge planning in progress Justification for Cont. Inpt. Patient at risk for further decompensation if at a lower level of care Dane Angeles MD Apr 20, 2017 13:51
[2017-04-20 18:00] VITALS: BP 125/59; PULSE 65; RESP 16; TEMP 98.3; O2SAT 92
[2017-04-20] MEDS: DOCUSATE SODIUM 100 MG CAP PO SCH (21:20)
[2017-04-20] MEDS: PRAVASTATIN SOD 80 MG TAB PO SCH (21:20)
[2017-04-21 05:58] VITALS: BP 152/72; PULSE 75; RESP 16; TEMP 98; O2SAT 92
[2017-04-21] MEDS: CEPHALEXIN MONOHYDRATE 500 MG CAP PO SCH ×3 (06:16→22:04)
[2017-04-21] MEDS: FUROSEMIDE 40 MG TAB PO SCH (08:46)
[2017-04-21] MEDS: ACETAMINOPHEN 325 MG TAB PO PRN (08:46)
[2017-04-21] MEDS: LISINOPRIL 5 MG TAB PO SCH (08:46)
[2017-04-21] MEDS: QUEtiapine FUMARATE 25 MG TAB PO SCH ×2 (08:47→22:04)
[2017-04-21] MEDS: DIVALPROEX DR 500 MG TABEC PO SCH ×2 (08:47→22:04)
[2017-04-21] MEDS: NICOTINE 21 MG/24 HR PATCH T-DERMAL SCH (09:00)
--- NOTE | 2017-04-21 16:54 | HHI.PYPN ---
Subjective Remarks Patient seen for follow-up, chart reviewed. Patient was taken to mental health court today and was somewhat upset that he was to be retained on the inpatient unit for further treatment and management. Patient understands that he may not be able to to return back home due to current family dynamics. Patient denies any perceptual disturbances, reports tolerating medications well. Review of Systems Except as stated in HPI: all other systems reviewed are Neg Objective Alert: Yes [place]: Person, Place, Date Mood: Other (slightly upset) Affect: Appropriate Memory Intact: Comment (impaired) Hallucinations: Other (denies) Delusions: No Delusion Type: Other (denies) Suicidal: Ideation (denies) Homicidal: Ideation Insight/Judgment Limited insight, fair impulse control and judgement. Vitals/IOs Vital Signs Date Time Temp Pulse Resp B/P (MAP) Pulse Ox O2 Delivery O2 Flow Rate FiO2 04/21/17 05:58 98.0 75 16 152/72 (98) 92 Intake and Output 04/21/17 04/21/17 04/21/17 07:59 15:59 23:59 Intake Total 240 ml Balance 240 ml Assessment & Plan Problem List: (1) DEMENTIA IN OTH DISEASES CLASSD ELSWHR W BEHAVIORAL DISTURB ICD Codes: F02.81 - DEMENTIA IN OTH DISEASES CLASSD ELSWHR W BEHAVIORAL DISTURB Status: Acute Assessment & Plan Patient taken to mental health court and was provided a continuance (4 weeks) to ascertain safe disposition. Patient to continue current treatment. Discharge planning in progress. Justification for Cont. Inpt. Patient at risk for further decompensation if at a lower level of care Dane Angeles MD Apr 21, 2017 16:54
[2017-04-21 18:47] VITALS: BP 118/56; PULSE 75; RESP 18; TEMP 99.2; O2SAT 94
[2017-04-21] MEDS: PRAVASTATIN SOD 80 MG TAB PO SCH (22:03)
[2017-04-21] MEDS: DOCUSATE SODIUM 100 MG CAP PO SCH (22:04)
[2017-04-22 05:16] VITALS: BP 120/59; PULSE 75; RESP 16; TEMP 97.7; O2SAT 95
[2017-04-22] MEDS: CEPHALEXIN MONOHYDRATE 500 MG CAP PO SCH ×3 (06:28→21:17)
[2017-04-22] MEDS: LISINOPRIL 5 MG TAB PO SCH (08:30)
[2017-04-22] MEDS: DIVALPROEX DR 500 MG TABEC PO SCH ×2 (08:30→21:36)
[2017-04-22] MEDS: FUROSEMIDE 40 MG TAB PO SCH (08:30)
[2017-04-22] MEDS: QUEtiapine FUMARATE 25 MG TAB PO SCH ×2 (08:31→21:18)
[2017-04-22] MEDS: NICOTINE 21 MG/24 HR PATCH T-DERMAL SCH (08:33)
--- NOTE | 2017-04-22 17:20 | HHI.PYPN ---
Subjective Remarks Patient seen for follow up; chart reviewed. Patient found lying in hospital bed , reports feeling "so-so" endorsing some back pain which she usually has but states that is manageable. She reports having slept well last evening reports the medications are helping in the evening. Patient denies any adverse drug reactions. Patient continues to feel upset due to uncertainty of where he will go after discharge. Review of Systems Except as stated in HPI: all other systems reviewed are Neg Objective Alert: Yes [place]: Person, Place, Date Mood: Other ("so-so") Affect: Other (Restricted) Memory Intact: Comment (impaired) Hallucinations: Other (denies) Delusions: No Delusion Type: Other (denies) Suicidal: Ideation (denies) Homicidal: Ideation Insight/Judgment Limited insight, fair impulse control, limited judgement Vitals/IOs Vital Signs Date Time Temp Pulse Resp B/P (MAP) Pulse Ox O2 Delivery O2 Flow Rate FiO2 04/22/17 05:16 97.7 75 16 120/59 (79) 95 Assessment & Plan Problem List: (1) DEMENTIA IN OTH DISEASES CLASSD ELSWHR W BEHAVIORAL DISTURB ICD Codes: F02.81 - DEMENTIA IN OTH DISEASES CLASSD ELSWHR W BEHAVIORAL DISTURB Status: Acute Assessment & Plan Patient at this time tolerate medications well. Continue current treatment. Patient has not had any behavioral issues since admission. Disposition for patient still uncertain as currently domiciled back in the home. Discharge planning in progress. Justification for Cont. Inpt. Patient at risk for further decompensation if at a lower level of care Dane Angeles MD Apr 22, 2017 17:20
[2017-04-22 17:45] VITALS: BP 112/83; PULSE 72; RESP 18; TEMP 98.1; O2SAT 97
[2017-04-22] MEDS: DOCUSATE SODIUM 100 MG CAP PO SCH (21:17)
[2017-04-22] MEDS: PRAVASTATIN SOD 80 MG TAB PO SCH (21:18)
[2017-04-23] MEDS: CEPHALEXIN MONOHYDRATE 500 MG CAP PO SCH ×3 (05:29→21:17)
[2017-04-23 06:04] VITALS: BP 104/51; PULSE 60; RESP 18; TEMP 97.6; O2SAT 100
[2017-04-23] MEDS: LISINOPRIL 5 MG TAB PO SCH (08:44)
[2017-04-23] MEDS: DIVALPROEX DR 500 MG TABEC PO SCH ×2 (08:44→21:17)
[2017-04-23] MEDS: FUROSEMIDE 40 MG TAB PO SCH (08:45)
[2017-04-23] MEDS: QUEtiapine FUMARATE 25 MG TAB PO SCH ×2 (08:45→21:17)
[2017-04-23] MEDS: NICOTINE 21 MG/24 HR PATCH T-DERMAL SCH (08:46)
[2017-04-23 09:11] VITALS: BP 150/80; PULSE 72; RESP 16
--- NOTE | 2017-04-23 15:24 | HHI.PYPN ---
Subjective Remarks Pt seen and discussed with staff. He has been compliant with medications and is tolerating them. No behavioral problems on unit. He has been polite and cooperative with care. He c/ o of feeling upset because he cannot reach his on the phone. No SI/HI. Objective Alert: Yes [place]: Person, Place, Date Mood: Other ("a little angry") Affect: Other (Restricted) Memory Intact: Comment (impaired) Hallucinations: Other (denies) Delusions: No Delusion Type: Other (none) Suicidal: Ideation (denies) Homicidal: Ideation (denies) Insight/Judgment limited Vitals/IOs Vital Signs Date Time Temp Pulse Resp B/P (MAP) Pulse Ox O2 Delivery O2 Flow Rate FiO2 04/23/17 09:11 72 16 150/80 (103) 04/23/17 06:04 97.6 100 Assessment & Plan Problem List: (1) DEMENTIA IN OTH DISEASES CLASSD ELSWHR W BEHAVIORAL DISTURB ICD Codes: F02.81 - DEMENTIA IN OTH DISEASES CLASSD ELSWHR W BEHAVIORAL DISTURB Status: Acute Assessment & Plan continue current tx plan. Estimated LOS: days Justification for Cont. Inpt. risk of decompensating Liliane Jacobsen MD Apr 23, 2017 15:24
[2017-04-23 17:45] VITALS: BP 126/61; PULSE 69; RESP 17; TEMP 97.9; O2SAT 100
[2017-04-23] MEDS: DOCUSATE SODIUM 100 MG CAP PO SCH (21:17)
[2017-04-23] MEDS: PRAVASTATIN SOD 80 MG TAB PO SCH (21:17)
[2017-04-24] MEDS: CEPHALEXIN MONOHYDRATE 500 MG CAP PO SCH ×3 (05:42→21:10)
[2017-04-24 06:28] VITALS: BP 141/63; PULSE 61; RESP 18; TEMP 98.1; O2SAT 96
[2017-04-24] MEDS: NICOTINE 21 MG/24 HR PATCH T-DERMAL SCH (09:00)
[2017-04-24] MEDS: FUROSEMIDE 40 MG TAB PO SCH (09:01)
[2017-04-24] MEDS: LISINOPRIL 5 MG TAB PO SCH (09:01)
[2017-04-24] MEDS: QUEtiapine FUMARATE 25 MG TAB PO SCH ×2 (09:01→21:10)
[2017-04-24] MEDS: DIVALPROEX DR 500 MG TABEC PO SCH ×2 (09:02→21:11)
--- NOTE | 2017-04-24 15:46 | HHI.PYPN ---
Subjective Remarks Pt seen and discussed with staff. He has been out in dayroom but stays to himself. He has been compliant and cooperative. He was upset this morning but able to calm without medication. NO SI/HI Objective Alert: Yes [place]: Person, Place, Date Mood: Other ("a little angry") Affect: Other (Restricted) Memory Intact: Comment (impaired) Hallucinations: Other (denies) Delusions: No Delusion Type: Other (none) Suicidal: Ideation (denies) Homicidal: Ideation (denies) Insight/Judgment poor Vitals/IOs Vital Signs Date Time Temp Pulse Resp B/P (MAP) Pulse Ox O2 Delivery O2 Flow Rate FiO2 04/24/17 06:28 98.1 61 18 141/63 (89) 96 Assessment & Plan Problem List: (1) DEMENTIA IN OTH DISEASES CLASSD ELSWHR W BEHAVIORAL DISTURB ICD Codes: F02.81 - 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 Estimated LOS: days Justification for Cont. Inpt. risk of decompensation Liliane Jacobsen MD Apr 24, 2017 15:46
[2017-04-24 16:16] VITALS: BP 148/65; PULSE 56; RESP 18; TEMP 97.4; O2SAT 98
[2017-04-24] MEDS: DOCUSATE SODIUM 100 MG CAP PO SCH (21:10)
[2017-04-24] MEDS: PRAVASTATIN SOD 80 MG TAB PO SCH (21:10)
[2017-04-25] MEDS: CEPHALEXIN MONOHYDRATE 500 MG CAP PO SCH ×3 (06:06→22:00)
[2017-04-25 06:16] VITALS: BP 97/53; PULSE 66; RESP 20; TEMP 98.4; O2SAT 97
[2017-04-25] MEDS: FUROSEMIDE 40 MG TAB PO SCH (08:11)
[2017-04-25] MEDS: LISINOPRIL 5 MG TAB PO SCH (08:12)
[2017-04-25] MEDS: QUEtiapine FUMARATE 25 MG TAB PO SCH ×2 (08:12→20:06)
[2017-04-25] MEDS: DIVALPROEX DR 500 MG TABEC PO SCH ×2 (08:12→20:06)
[2017-04-25] MEDS: NICOTINE 21 MG/24 HR PATCH T-DERMAL SCH (08:16)
--- NOTE | 2017-04-25 15:25 | HHI.PYPN ---
Subjective Remarks Patient seen for follow-up, chart review. Patient found lying in hospital bed was able to wake up to engage in interview today. Patient states that he is feeling "EXTRA tired". He reports that he didn't phosphate until later last night. States that he had mostly been sleeping well. He reports his weak and has been "alright" but is still trying to get that to his family patient aware that he may be referred to had sister living facility or assisted and the possibility of not being able to return to this and daughter due to recent events that brought in to the hospital. At this time denies SI, HI, AVH or delusions. Review of Systems Except as stated in HPI: all other systems reviewed are Neg Objective Alert: Yes [place]: Person, Place, Date Mood: Other ("all right") Affect: Other (Restricted) Memory Intact: Comment (impaired) Hallucinations: Other (denies) Delusions: No Delusion Type: Other (none) Suicidal: Ideation (denies) Homicidal: Ideation (denies) Insight/Judgment Limited insight, fair impulse control and judgment Vitals/IOs Vital Signs Date Time Temp Pulse Resp B/P (MAP) Pulse Ox O2 Delivery O2 Flow Rate FiO2 04/25/17 06:16 98.4 66 20 97/53 (68) 97 Assessment & Plan Problem List: (1) DEMENTIA IN OTH DISEASES CLASSD ELSWHR W BEHAVIORAL DISTURB ICD Codes: F02.81 - DEMENTIA IN OTH DISEASES CLASSD ELSWHR W BEHAVIORAL DISTURB Status: Acute Assessment & Plan Patient at this time continues not to have any behavioral issues since admission , tolerating medications well. Continue current treatment, discharge planning in progress Justification for Cont. Inpt. At risk for further decompensation if at lower level of care. Dane Angeles MD Apr 25, 2017 15:25
[2017-04-25 16:53] VITALS: BP 137/63; PULSE 67; RESP 18; TEMP 98.2; O2SAT 97
[2017-04-25] MEDS: DOCUSATE SODIUM 100 MG CAP PO SCH (20:06)
[2017-04-25] MEDS: PRAVASTATIN SOD 80 MG TAB PO SCH (20:06)
[2017-04-26 05:40] VITALS: BP 112/56; PULSE 69; RESP 20; TEMP 98.5; O2SAT 96
[2017-04-26] MEDS: CEPHALEXIN MONOHYDRATE 500 MG CAP PO SCH ×3 (05:52→21:10)
[2017-04-26 06:11] VITALS: BP 112/56; PULSE 69; RESP 20; TEMP 98.5; O2SAT 96
[2017-04-26] MEDS: LISINOPRIL 5 MG TAB PO SCH (08:43)
[2017-04-26] MEDS: QUEtiapine FUMARATE 25 MG TAB PO SCH ×2 (08:44→20:22)
[2017-04-26] MEDS: DIVALPROEX DR 500 MG TABEC PO SCH ×2 (08:44→20:22)
[2017-04-26] MEDS: FUROSEMIDE 40 MG TAB PO SCH (08:44)
[2017-04-26] MEDS: NICOTINE 21 MG/24 HR PATCH T-DERMAL SCH (08:49)
--- NOTE | 2017-04-26 14:14 | HHI.PYPN ---
Subjective Remarks Patient seen for follow-up, chart review. Patient found and milieu on the unit. Patient states feeling "alright" although he continued to have some back pain mentions current treatment with pain medications have been helpful. Patient reports that he still wants to talk to his family was trying to reach them via telephone but has been unsuccessful. Patient denies any depressive manic or psychotic symptoms at this time. Patient denies any adverse drug reactions with current treatment. Review of Systems Except as stated in HPI: all other systems reviewed are Neg Objective Alert: Yes [place]: Person, Place, Date Mood: Other ("all right") Affect: Other (Restricted) Memory Intact: Comment (impaired) Hallucinations: Other (denies) Delusions: No Delusion Type: Other (none) Suicidal: Ideation (denies) Homicidal: Ideation (denies) Insight/Judgment Limited insight, fair impulse control and limited judgment Vitals/IOs Vital Signs Date Time Temp Pulse Resp B/P (MAP) Pulse Ox O2 Delivery O2 Flow Rate FiO2 04/26/17 06:11 98.5 69 20 112/56 (74) 96 Assessment & Plan Problem List: (1) DEMENTIA IN OTH DISEASES CLASSD ELSWHR W BEHAVIORAL DISTURB ICD Codes: F02.81 - DEMENTIA IN OTH DISEASES CLASSD ELSWHR W BEHAVIORAL DISTURB Status: Acute Assessment & Plan Patient continues to have good behavioral control on the unit has not had any episodes which were concerning for dyscontrol. Patient adherent to current treatment protocol cooperative with staff. Continue current treatment, discharge planning in progress. Patient cannot return back home and will require alternative living facility. Justification for Cont. Inpt. At risk for further decompensation if at lower level of care. Dane Angeles MD Apr 26, 2017 14:14
[2017-04-26 18:10] VITALS: BP 124/59; PULSE 62; RESP 18; TEMP 99.1; O2SAT 99
[2017-04-26] MEDS: PRAVASTATIN SOD 80 MG TAB PO SCH (20:22)
[2017-04-26] MEDS: DOCUSATE SODIUM 100 MG CAP PO SCH (20:22)
[2017-04-27 06:43] VITALS: BP 136/67; PULSE 64; RESP 16; TEMP 97.1; O2SAT 96
[2017-04-27] MEDS: NICOTINE 21 MG/24 HR PATCH T-DERMAL SCH (09:00)
[2017-04-27] MEDS: LISINOPRIL 5 MG TAB PO SCH (09:24)
[2017-04-27] MEDS: DIVALPROEX DR 500 MG TABEC PO SCH ×2 (09:24→21:00)
[2017-04-27] MEDS: FUROSEMIDE 40 MG TAB PO SCH (09:24)
[2017-04-27] MEDS: QUEtiapine FUMARATE 25 MG TAB PO SCH ×2 (09:25→21:00)
[2017-04-27] MEDS: CEPHALEXIN MONOHYDRATE 500 MG CAP PO SCH ×2 (14:06→22:00)
--- NOTE | 2017-04-27 15:35 | HHI.PYPN ---
Subjective Remarks Patient seen for follow-up, chart reviewed. Patient found sitting in day room watching television. Patient states he's feeling "alright" and states that he spoke with his animal ride manager and was told that his daughter did not want him back home , which upset him. Patient states that he was still like to speak to his to find out if she feels the same. Patient was that he may not be able to return home and that treatment team is currently looking for an alternative place for him to live. Patient denies any depressive manic or psychotic symptoms at this time. Review of Systems Except as stated in HPI: all other systems reviewed are Neg Objective Alert: Yes [place]: Person, Place, Date Mood: Other ("all right") Affect: Appropriate Memory Intact: Comment (impaired) Hallucinations: Other (denies) Delusions: No Delusion Type: Other (none) Suicidal: Ideation (denies) Homicidal: Ideation (denies) Insight/Judgment Limited insight, fair impulse control and judgment Vitals/IOs Vital Signs Date Time Temp Pulse Resp B/P (MAP) Pulse Ox O2 Delivery O2 Flow Rate FiO2 04/27/17 06:43 97.1 64 16 136/67 (90) 96 Intake and Output 04/27/17 04/27/17 04/27/17 07:59 15:59 23:59 Intake Total 240 ml Balance 240 ml Assessment & Plan Problem List: (1) DEMENTIA IN OTH DISEASES CLASSD ELSWHR W BEHAVIORAL DISTURB ICD Codes: F02.81 - DEMENTIA IN OTH DISEASES CLASSD ELSWHR W BEHAVIORAL DISTURB Status: Acute Assessment & Plan Patient at this time continues to be calm and cooperative staff, no behavioral dyscontrol since admission. Patient is tolerating medication regimen well. Patient aware of the possibility that he may not return to be able to return home and is agreeable to find alternative place to live. Continue current treatment discharge planning in progress Justification for Cont. Inpt. At risk for further decompensation if at lower level of care Dane Angeles MD Apr 27, 2017 15:35
[2017-04-27 18:24] VITALS: BP 127/60; PULSE 74; RESP 18; TEMP 96.9; O2SAT 96
[2017-04-27] MEDS: traMADol HCL 50 MG TAB PO PRN ×2 (20:30→22:44)
[2017-04-27] MEDS: PRAVASTATIN SOD 80 MG TAB PO SCH (21:00)
[2017-04-27] MEDS: DOCUSATE SODIUM 100 MG CAP PO SCH (21:00)
[2017-04-28 05:28] VITALS: BP 90/50; PULSE 56; RESP 17; TEMP 97.4; O2SAT 96
[2017-04-28] MEDS: CEPHALEXIN MONOHYDRATE 500 MG CAP PO SCH ×3 (06:13→21:07)
[2017-04-28] MEDS: NICOTINE 21 MG/24 HR PATCH T-DERMAL SCH (09:00)
[2017-04-28] MEDS: FUROSEMIDE 40 MG TAB PO SCH (09:20)
[2017-04-28] MEDS: DIVALPROEX DR 500 MG TABEC PO SCH ×2 (09:20→21:06)
[2017-04-28] MEDS: LISINOPRIL 5 MG TAB PO SCH (09:20)
[2017-04-28] MEDS: QUEtiapine FUMARATE 25 MG TAB PO SCH ×2 (09:20→21:06)
--- NOTE | 2017-04-28 16:30 | HHI.PYPN ---
Subjective Remarks Patient seen for follow-up, chart review. Patient found walking the hallways, calm and cooperative with interview. He states feeling "alright" continues to have some sore back pain but states that the medications are helpful. He repots continually feeling frustrated that he has not been able to contact his . He states feeling "aliright"; denies SI, HI, AVH or delusions. Review of Systems Except as stated in HPI: all other systems reviewed are Neg Objective Alert: Yes [place]: Person, Place, Date Mood: Other ("all right") Affect: Appropriate Memory Intact: Comment (impaired) Hallucinations: Other (denies) Delusions: No Delusion Type: Other (none) Suicidal: Ideation (denies) Homicidal: Ideation (denies) Insight/Judgment limied insight, fair impulse control and judgement Vitals/IOs Vital Signs Date Time Temp Pulse Resp B/P (MAP) Pulse Ox O2 Delivery O2 Flow Rate FiO2 04/28/17 05:28 97.4 56 17 90/50 (63) 96 Intake and Output 04/28/17 04/28/17 04/28/17 07:59 15:59 23:59 Intake Total 0 ml 240 ml Balance 0 ml 240 ml Assessment & Plan Problem List: (1) DEMENTIA IN OTH DISEASES CLASSD ELSWHR W BEHAVIORAL DISTURB ICD Codes: F02.81 - DEMENTIA IN OTH DISEASES CLASSD ELSWHR W BEHAVIORAL DISTURB Status: Acute Assessment & Plan Patient continues to be noted to be calm and cooperative wiith staff, no behavioral dyscontrol. Patient continues to wait for adequate placement as he cannot return back to his previous home. Continue current treatment, discharge planning in progress. Justification for Cont. Inpt. At risk for decompensation if at lower level of care Dane Angeles MD Apr 28, 2017 16:30
[2017-04-28 18:17] VITALS: BP 120/58; PULSE 63; RESP 16; TEMP 97.6; O2SAT 97
[2017-04-28] MEDS: traMADol HCL 50 MG TAB PO PRN (21:06)
[2017-04-28] MEDS: PRAVASTATIN SOD 80 MG TAB PO SCH (21:06)
[2017-04-28] MEDS: DOCUSATE SODIUM 100 MG CAP PO SCH (21:06)
[2017-04-29 05:14] VITALS: BP 122/58; PULSE 62; RESP 18; TEMP 97.9; O2SAT 96
[2017-04-29] MEDS: CEPHALEXIN MONOHYDRATE 500 MG CAP PO SCH ×3 (05:40→21:25)
[2017-04-29] MEDS: NICOTINE 21 MG/24 HR PATCH T-DERMAL SCH (09:00)
[2017-04-29] MEDS: DIVALPROEX DR 500 MG TABEC PO SCH ×2 (09:25→21:25)
[2017-04-29] MEDS: QUEtiapine FUMARATE 25 MG TAB PO SCH ×2 (09:26→21:25)
[2017-04-29] MEDS: FUROSEMIDE 40 MG TAB PO SCH (09:26)
[2017-04-29] MEDS: LISINOPRIL 5 MG TAB PO SCH (09:30)
--- NOTE | 2017-04-29 12:22 | HHI.PYPN ---
Subjective Remarks Patient seen for follow up, chart review. Patient found sitting outside during activity. Patient states that this evening a nurse help him get in touch with his which color conversation did not go well. Patient stated he is feeling upset that his was blaming him for the events that occurred prior to his admission. Patient states that he did not want to get her more upset and had decided to end the call. Patient states that he is aware that team is trying to find an adequate place for him to live but also would like to make amends with his family at some point. Patient denies any depressive, manic or psychotic symptoms, denied SI HI, AVH or delusions. Review of Systems Except as stated in HPI: all other systems reviewed are Neg Objective Alert: Yes [place]: Person, Place, Date Mood: Other ("okay I guess") Affect: Other (medical be somewhat upset but with calm affect) Memory Intact: Comment (impaired) Hallucinations: Other (denies) Delusions: No Delusion Type: Other (none) Suicidal: Ideation (denies) Homicidal: Ideation (denies) Insight/Judgment Poor insight, fair impulse control and judgment Vitals/IOs Vital Signs Date Time Temp Pulse Resp B/P (MAP) Pulse Ox O2 Delivery O2 Flow Rate FiO2 04/29/17 05:14 97.9 62 18 122/58 (79) 96 Assessment & Plan Problem List: (1) DEMENTIA IN OTH DISEASES CLASSD ELSWHR W BEHAVIORAL DISTURB ICD Codes: F02.81 - DEMENTIA IN OTH DISEASES CLASSD ELSWHR W BEHAVIORAL DISTURB Status: Acute Assessment & Plan Patient this time continues to be calm and cooperative with staff with no behavioral issues. Patient continues to comply with treatment. Treatment team continues to search for adequate placement. Discharge planning in progress Justification for Cont. Inpt. At risk for further decompensation if at lower level of care. Dane Angeles MD Apr 29, 2017 12:22
[2017-04-29 18:13] VITALS: BP 169/52; PULSE 62; RESP 18; TEMP 98.1; O2SAT 97
[2017-04-29] MEDS: DOCUSATE SODIUM 100 MG CAP PO SCH (21:25)
[2017-04-29] MEDS: PRAVASTATIN SOD 80 MG TAB PO SCH (21:25)
[2017-04-30] MEDS: traMADol HCL 50 MG TAB PO PRN ×3 (00:25→21:23)
[2017-04-30 05:02] VITALS: BP 120/61; PULSE 69; RESP 18; TEMP 98.1; O2SAT 98
[2017-04-30] MEDS: CEPHALEXIN MONOHYDRATE 500 MG CAP PO SCH ×3 (06:08→21:23)
[2017-04-30] MEDS: FUROSEMIDE 40 MG TAB PO SCH (09:41)
[2017-04-30] MEDS: LISINOPRIL 5 MG TAB PO SCH (09:41)
[2017-04-30] MEDS: DIVALPROEX DR 500 MG TABEC PO SCH ×2 (09:41→21:23)
[2017-04-30] MEDS: QUEtiapine FUMARATE 25 MG TAB PO SCH ×2 (09:42→21:25)
[2017-04-30] MEDS: NICOTINE 21 MG/24 HR PATCH T-DERMAL SCH (09:45)
--- NOTE | 2017-04-30 15:04 | HHI.PYPN ---
Subjective Remarks Patient was seen and case discussed with nursing. Patient is pleasant and cooperative with exam. Behaving well on the unit. No physical or verbal outbursts. Somewhat hyperverbal. Insight remains poor concerning his admission. The visitors or phone calls. Denies suicidal or homicidal ideation intent or plan. Compliant with medications Objective Alert: Yes [place]: Person, Place, Date Mood: Calm Affect: Other (medical be somewhat upset but with calm affect) Memory Intact: Comment (impaired) Hallucinations: Other (denies) Delusions: No Delusion Type: Other (none) Suicidal: Ideation (denies) Homicidal: Ideation (denies) Insight/Judgment Poor Vitals/IOs Vital Signs Date Time Temp Pulse Resp B/P (MAP) Pulse Ox O2 Delivery O2 Flow Rate FiO2 04/30/17 05:02 98.1 69 18 120/61 (80) 98 Assessment & Plan Problem List: (1) DEMENTIA IN OTH DISEASES CLASSD ELSWHR W BEHAVIORAL DISTURB ICD Codes: F02.81 - DEMENTIA IN OTH DISEASES CLASSD ELSWHR W BEHAVIORAL DISTURB Status: Acute Assessment & Plan Continue current treatment plan Justification for Cont. Inpt. Patient will decompensate in a less restrictive setting Pete Reed DO Apr 30, 2017 15:04
[2017-04-30 20:15] VITALS: BP 132/57; PULSE 63; TEMP 97.6; O2SAT 97
[2017-04-30] MEDS: PRAVASTATIN SOD 80 MG TAB PO SCH (21:24)
[2017-04-30] MEDS: DOCUSATE SODIUM 100 MG CAP PO SCH (21:24)
[2017-05-01] MEDS: CEPHALEXIN MONOHYDRATE 500 MG CAP PO SCH ×3 (05:45→21:29)
[2017-05-01] MEDS: FUROSEMIDE 40 MG TAB PO SCH (08:49)
[2017-05-01] MEDS: DIVALPROEX DR 500 MG TABEC PO SCH ×2 (08:49→21:13)
[2017-05-01] MEDS: LISINOPRIL 5 MG TAB PO SCH (08:49)
[2017-05-01] MEDS: QUEtiapine FUMARATE 25 MG TAB PO SCH ×2 (08:53→21:13)
[2017-05-01] MEDS: NICOTINE 21 MG/24 HR PATCH T-DERMAL SCH (08:54)
--- NOTE | 2017-05-01 12:41 | HHI.PYPN ---
Subjective Remarks Patient was seen and case discussed with nursing. Patient is bright and social with other patients. He remains perseverative in his version of the events leading to his admission. Pain has improved. Sleeping 4 hours per night. Alert and oriented 3. Denies suicidal or homicidal ideation intent or plan. Tolerating medications well Objective Alert: Yes [place]: Person, Place, Date Mood: Calm Affect: Restricted Memory Intact: Comment (impaired) Hallucinations: Other (denies) Delusions: No Delusion Type: Other (none) Suicidal: Ideation (denies) Homicidal: Ideation (denies) Insight/Judgment Poor Vitals/IOs Vital Signs Date Time Temp Pulse Resp B/P (MAP) Pulse Ox O2 Delivery O2 Flow Rate FiO2 04/30/17 20:15 97.6 63 132/57 (82) 97 04/30/17 12:40 18 Assessment & Plan Problem List: (1) DEMENTIA IN OTH DISEASES CLASSD ELSWHR W BEHAVIORAL DISTURB ICD Codes: F02.81 - DEMENTIA IN OTH DISEASES CLASSD ELSWHR W BEHAVIORAL DISTURB Status: Acute Assessment & Plan Continue current treatment plan Justification for Cont. Inpt. Patient would decompensate in a less restrictive setting Pete Reed DO May 01, 2017 12:41
[2017-05-01] MEDS: PRAVASTATIN SOD 80 MG TAB PO SCH (21:13)
[2017-05-01] MEDS: DOCUSATE SODIUM 100 MG CAP PO SCH (21:13)
[2017-05-01] MEDS: traMADol HCL 50 MG TAB PO PRN (22:54)
[2017-05-02 05:19] VITALS: BP 124/74; PULSE 68; RESP 16; TEMP 98; O2SAT 99
[2017-05-02] MEDS: CEPHALEXIN MONOHYDRATE 500 MG CAP PO SCH ×3 (06:05→21:17)
[2017-05-02] MEDS: LISINOPRIL 5 MG TAB PO SCH (08:56)
[2017-05-02] MEDS: QUEtiapine FUMARATE 25 MG TAB PO SCH ×2 (08:56→20:41)
[2017-05-02] MEDS: FUROSEMIDE 40 MG TAB PO SCH (08:56)
[2017-05-02] MEDS: DIVALPROEX DR 500 MG TABEC PO SCH ×2 (09:00→20:41)
[2017-05-02] MEDS: NICOTINE 21 MG/24 HR PATCH T-DERMAL SCH (09:00)
--- NOTE | 2017-05-02 16:12 | HHI.PYPN ---
Subjective Remarks Patient seen for follow, chart review. Patient found sitting and a reluctant television able to engage in interview today. Patient states that he has been having some back pain last evening but is feeling much better today. Patient reports his mood is "good" although continues to be worried about his family relations. Patient states that he continues to want to be able to speak to his to talk about what happened. He is aware that the treatment team is currently looking for placement for him at this time. Patient reports daily drinking well, no problems with urination or bowel movement. Patient reports tolerating medication regimen well. Review of Systems Except as stated in HPI: all other systems reviewed are Neg Objective Alert: Yes [place]: Person, Place, Date Mood: Calm Affect: Restricted Memory Intact: Comment (impaired) Hallucinations: Other (denies) Delusions: No Delusion Type: Other (none) Suicidal: Ideation (denies) Homicidal: Ideation (denies) Insight/Judgment Limited insight, impulse control and judgment Vitals/IOs Vital Signs Date Time Temp Pulse Resp B/P (MAP) Pulse Ox O2 Delivery O2 Flow Rate FiO2 05/02/17 05:19 98.0 68 16 124/74 (91) 99 Assessment & Plan Problem List: (1) DEMENTIA IN OTH DISEASES CLASSD ELSWHR W BEHAVIORAL DISTURB ICD Codes: F02.81 - DEMENTIA IN OTH DISEASES CLASSD ELSWHR W BEHAVIORAL DISTURB Status: Acute Assessment & Plan Patient continues with stable mood at this time no behavioral issues since admission to the hospital. Patient currently waiting for acquisition of stable living facility that will accept him. Continue current treatment discharge planning in progress Justification for Cont. Inpt. At risk for decompensation if it lower level of care Dane Angeles MD May 02, 2017 16:12
[2017-05-02 18:00] VITALS: BP 112/55; PULSE 73; RESP 18; TEMP 96.8; O2SAT 97
[2017-05-02] MEDS: PRAVASTATIN SOD 80 MG TAB PO SCH (20:40)
[2017-05-02] MEDS: DOCUSATE SODIUM 100 MG CAP PO SCH (20:40)
[2017-05-03] MEDS: CEPHALEXIN MONOHYDRATE 500 MG CAP PO SCH ×3 (05:53→21:07)
[2017-05-03 06:18] VITALS: BP 117/58; PULSE 59; RESP 18; TEMP 97; O2SAT 97
[2017-05-03] MEDS: DIVALPROEX DR 500 MG TABEC PO SCH ×2 (08:58→21:05)
[2017-05-03] MEDS: QUEtiapine FUMARATE 25 MG TAB PO SCH ×2 (08:59→21:05)
[2017-05-03] MEDS: LISINOPRIL 5 MG TAB PO SCH (08:59)
[2017-05-03] MEDS: FUROSEMIDE 40 MG TAB PO SCH (08:59)
[2017-05-03] MEDS: NICOTINE 21 MG/24 HR PATCH T-DERMAL SCH (09:00)
--- NOTE | 2017-05-03 13:09 | HHI.PYPN ---
Subjective Remarks Patient seen for follow up, chart reviewed. Patient found ambulating with walker on the unit, cooperative interview. Patient states that he continues to feel upset and angry about the circumstances surrounding his admission. He states that he has not spoken again to his family and would like to sit down and "talk this through" with them. Patient aware that a electroplating sales representative from a potential living faciilty will come today for assessment. Patient reports tolerating medications well, denies any ADRs. Mood has been "ok", denies depressive, manic or psychotic symptoms at this time. Review of Systems Except as stated in HPI: all other systems reviewed are Neg Objective Alert: Yes [place]: Person, Place, Date Mood: Calm Affect: Restricted Memory Intact: Comment (impaired) Hallucinations: Other (denies) Delusions: No Delusion Type: Other (none) Suicidal: Ideation (denies) Homicidal: Ideation (denies) Insight/Judgment limited insight, impulse control and judgment. Vitals/IOs Vital Signs Date Time Temp Pulse Resp B/P (MAP) Pulse Ox O2 Delivery O2 Flow Rate FiO2 05/03/17 06:18 97.0 59 18 117/58 (77) 97 Intake and Output 05/03/17 05/03/17 05/04/17 08:00 16:00 00:00 Intake Total 0 ml Balance 0 ml Assessment & Plan Problem List: (1) DEMENTIA IN OTH DISEASES CLASSD ELSWHR W BEHAVIORAL DISTURB ICD Codes: F02.81 - DEMENTIA IN OTH DISEASES CLASSD ELSWHR W BEHAVIORAL DISTURB Status: Acute Assessment & Plan Patient continues to respond well to current treatment, no behavioral dyscontrol since admission has been calm and cooperative with staff. Patient with potential meeting with electroplating sales representative from the facility today. Continue current treatment, discharge planning in progress. Justification for Cont. Inpt. At risk for decompensation if it lower level of care Dane Angeles MD May 03, 2017 13:09
[2017-05-03 18:31] VITALS: BP 119/60; PULSE 76; RESP 18; TEMP 97.6; O2SAT 99
[2017-05-03] MEDS: DOCUSATE SODIUM 100 MG CAP PO SCH (21:05)
[2017-05-03] MEDS: PRAVASTATIN SOD 80 MG TAB PO SCH (21:06)
[2017-05-03] MEDS: traMADol HCL 50 MG TAB PO PRN (21:15)
[2017-05-04 06:29] VITALS: BP 119/57; PULSE 66; RESP 16; TEMP 97; O2SAT 97
[2017-05-04] MEDS: CEPHALEXIN MONOHYDRATE 500 MG CAP PO SCH (06:39)
[2017-05-04] MEDS: LISINOPRIL 5 MG TAB PO SCH (07:58)
[2017-05-04] MEDS: DIVALPROEX DR 500 MG TABEC PO SCH ×2 (07:58→20:33)
[2017-05-04] MEDS: FUROSEMIDE 40 MG TAB PO SCH (07:58)
[2017-05-04] MEDS: QUEtiapine FUMARATE 25 MG TAB PO SCH ×2 (07:59→20:33)
[2017-05-04] MEDS: NICOTINE 21 MG/24 HR PATCH T-DERMAL SCH (08:01)
--- NOTE | 2017-05-04 15:12 | HHI.PYPN ---
Subjective Remarks Patient seen for follow-up, chart reviewed. Patient found sitting outside during group activity able to engage in interview today. Patient stated he was visited by a business office representative from a living facility which he states went well. Patient is hopeful that he will be accepted at this facility. Patient states he had been feeling "good" denies any depressive manic or psychotic symptoms at this time. Tolerating medication treatment well with no adverse drug reactions. Patient has had no behavioral issues since admission. Review of Systems Except as stated in HPI: all other systems reviewed are Neg Objective Alert: Yes [place]: Person, Place, Date Mood: Calm Affect: Appropriate Memory Intact: Comment (impaired) Hallucinations: Other (denies) Delusions: No Delusion Type: Other (none) Suicidal: Ideation (denies) Homicidal: Ideation (denies) Insight/Judgment Limited insight, fair impulse control and judgment Vitals/IOs Vital Signs Date Time Temp Pulse Resp B/P (MAP) Pulse Ox O2 Delivery O2 Flow Rate FiO2 05/04/17 06:29 97.0 66 16 119/57 (77) 97 Assessment & Plan Problem List: (1) DEMENTIA IN OTH DISEASES CLASSD ELSWHR W BEHAVIORAL DISTURB ICD Codes: F02.81 - DEMENTIA IN OTH DISEASES CLASSD ELSWHR W BEHAVIORAL DISTURB Status: Acute Assessment & Plan Patient continues to be calm and cooperative with staff, no behavioral issues. Patient continues to respond well to current treatment. Acceptance to this to an adult living facility still pending although he was visited by a business office representative from one of these facilities yesterday but unclear whether he will be accepted there. Continue current treatment. Discharge planning in progress Justification for Cont. Inpt. At risk for decompensation if it lower level of care Dane Angeles MD May 04, 2017 15:12
[2017-05-04 18:20] VITALS: BP 141/63; PULSE 76; RESP 18; TEMP 96.9; O2SAT 98
[2017-05-04] MEDS: PRAVASTATIN SOD 80 MG TAB PO SCH (20:34)
[2017-05-04] MEDS: DOCUSATE SODIUM 100 MG CAP PO SCH (20:34)
[2017-05-04] MEDS: traMADol HCL 50 MG TAB PO PRN (22:05)
[2017-05-05 06:08] VITALS: BP 116/64; PULSE 62; RESP 18; TEMP 97.7; O2SAT 98
[2017-05-05] MEDS: LISINOPRIL 5 MG TAB PO SCH (08:49)
[2017-05-05] MEDS: NICOTINE 21 MG/24 HR PATCH T-DERMAL SCH (08:50)
[2017-05-05] MEDS: QUEtiapine FUMARATE 25 MG TAB PO SCH ×2 (08:50→21:38)
[2017-05-05] MEDS: DIVALPROEX DR 500 MG TABEC PO SCH ×2 (08:50→21:38)
[2017-05-05] MEDS: FUROSEMIDE 40 MG TAB PO SCH (08:50)
--- NOTE | 2017-05-05 13:31 | HHI.PYPN ---
Subjective Remarks Patient seen for follow, chart reviewed. Patient found lying in hospital bed, cooperative interview. Patient states that he is having some soreness in his back but this is usual the morning for him and feels better once he is more ambulatory. Patient states that he was visited by a community health representative and was hoping to be expected with the facility soon. Patient denies any mood symptoms any psychotic symptoms, has not had any behavioral dyscontrol since admission to the unit. Patient reports tolerating medication regimen well with no adverse drug reactions. Patient states feeling "alright" denies SI, HI, AVH or delusions. Review of Systems Except as stated in HPI: all other systems reviewed are Neg Objective Alert: Yes [place]: Person, Place, Date Mood: Calm Affect: Appropriate Memory Intact: Comment (impaired) Hallucinations: Other (denies) Delusions: No Delusion Type: Other (none) Suicidal: Ideation (denies) Homicidal: Ideation (denies) Insight/Judgment Limited insight, fair impulse control and judgment Vitals/IOs Vital Signs Date Time Temp Pulse Resp B/P (MAP) Pulse Ox O2 Delivery O2 Flow Rate FiO2 05/05/17 06:08 97.7 62 18 116/64 (81) 98 Assessment & Plan Problem List: (1) DEMENTIA IN OTH DISEASES CLASSD ELSWHR W BEHAVIORAL DISTURB ICD Codes: F02.81 - 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 As per treatment team patient was accepted at [facility] and rehabilitation but was pending certain documents from family to be officially accepted and have him transferred to this facility. Continue current treatment. Discharge planning in progress Justification for Cont. Inpt. At risk for decompensation if it lower level of care Dane Angeles MD May 05, 2017 13:31
[2017-05-05 18:17] VITALS: BP 127/55; PULSE 69; RESP 17; TEMP 97.1; O2SAT 99
[2017-05-05] MEDS: DOCUSATE SODIUM 100 MG CAP PO SCH (21:38)
[2017-05-05] MEDS: PRAVASTATIN SOD 80 MG TAB PO SCH (21:38)
[2017-05-05] MEDS: ACETAMINOPHEN 325 MG TAB PO PRN (21:40)
[2017-05-05] MEDS: traMADol HCL 50 MG TAB PO PRN (21:40)
[2017-05-06 05:19] VITALS: BP 133/63; PULSE 62; RESP 16; TEMP 97.8; O2SAT 95
[2017-05-06] MEDS: LISINOPRIL 5 MG TAB PO SCH (08:54)
[2017-05-06] MEDS: DIVALPROEX DR 500 MG TABEC PO SCH ×2 (08:54→21:55)
[2017-05-06] MEDS: QUEtiapine FUMARATE 25 MG TAB PO SCH ×2 (08:55→21:55)
[2017-05-06] MEDS: FUROSEMIDE 40 MG TAB PO SCH (08:56)
[2017-05-06] MEDS: NICOTINE 21 MG/24 HR PATCH T-DERMAL SCH (08:56)
--- NOTE | 2017-05-06 11:01 | HHI.PYPN ---
Subjective Remarks Patient seen in his room with nurse Clementine, chart reviewed. Patient compliant medication. Patient calm pleasant appears fairly well oriented. Though denies any behaviors living with his daughter and his that led to this hospitalization. He fell no significant behavior problems here. Denies suicidality homicidality voices or visions. For now continue treatment Review of Systems Except as stated in HPI: all other systems reviewed are Neg Objective Alert: Yes [place]: Person, Place, Date Mood: Calm Affect: Appropriate Memory Intact: Comment (impaired) Hallucinations: Other (denies) Delusions: No Delusion Type: Other (none) Suicidal: Ideation (denies) Homicidal: Ideation (denies) Insight/Judgment Very poor Vitals/IOs Vital Signs Date Time Temp Pulse Resp B/P (MAP) Pulse Ox O2 Delivery O2 Flow Rate FiO2 05/06/17 05:19 97.8 62 16 133/63 (86) 95 Assessment & Plan Problem List: (1) DEMENTIA IN OTH DISEASES CLASSD ELSWHR W BEHAVIORAL DISTURB ICD Codes: F02.81 - DEMENTIA IN OTH DISEASES CLASSD ELSWHR W BEHAVIORAL DISTURB Status: Acute (2) OTHER ALZHEIMER'S DISEASE ICD Codes: G30.8 - OTHER ALZHEIMER'S DISEASE Assessment & Plan Estimated LOS: days patient appears fairly well oriented there is a degree of confusion with him. He has no insight, and denies any memory of his aggressive behavior at home Justification for Cont. Inpt. At this time patient will decompensate then placed in a lower level of care Discharge Planning To be determined Anders Teixeira MD May 06, 2017 11:01
[2017-05-06 21:34] VITALS: BP 126/56; PULSE 69; RESP 17; TEMP 97.8; O2SAT 97
[2017-05-06] MEDS: ACETAMINOPHEN 325 MG TAB PO PRN (21:55)
[2017-05-06] MEDS: PRAVASTATIN SOD 80 MG TAB PO SCH (21:55)
[2017-05-06] MEDS: traMADol HCL 50 MG TAB PO PRN (21:56)
[2017-05-06] MEDS: DOCUSATE SODIUM 100 MG CAP PO SCH (21:56)
[2017-05-07 06:30] VITALS: BP 96/53; PULSE 64; RESP 18; TEMP 97.9; O2SAT 97
[2017-05-07] MEDS: LISINOPRIL 5 MG TAB PO SCH (08:06)
[2017-05-07] MEDS: FUROSEMIDE 40 MG TAB PO SCH (08:06)
[2017-05-07] MEDS: DIVALPROEX DR 500 MG TABEC PO SCH ×2 (08:07→22:24)
[2017-05-07] MEDS: NICOTINE 21 MG/24 HR PATCH T-DERMAL SCH (08:07)
[2017-05-07] MEDS: QUEtiapine FUMARATE 25 MG TAB PO SCH ×2 (08:07→22:24)
--- NOTE | 2017-05-07 12:51 | HHI.PYPN ---
Subjective Remarks Patient seen, case discussed with nurse and labs reviewed. Remains seclusive most of the time. Review of Systems Except as stated in HPI: all other systems reviewed are Neg Objective Alert: Yes [place]: Person, Place, Date Mood: Calm Affect: Appropriate Memory Intact: Comment (impaired) Hallucinations: Other (denies) Delusions: No Delusion Type: Other (none) Suicidal: Ideation (denies) Homicidal: Ideation (denies) Insight/Judgment Impaired Vitals/IOs Vital Signs Date Time Temp Pulse Resp B/P (MAP) Pulse Ox O2 Delivery O2 Flow Rate FiO2 05/07/17 06:30 97.9 64 18 96/53 (67) 97 Assessment & Plan Problem List: (1) DEMENTIA IN OTH DISEASES CLASSD ELSWHR W BEHAVIORAL DISTURB ICD Codes: F02.81 - DEMENTIA IN OTH DISEASES CLASSD ELSWHR W BEHAVIORAL DISTURB Status: Acute (2) OTHER ALZHEIMER'S DISEASE ICD Codes: G30.8 - OTHER ALZHEIMER'S DISEASE Assessment & Plan Estimated LOS: days minimal response to current medication regimen. Remains easily agitated. Justification for Cont. Inpt. Unable to care for self. Bright Becerra MD May 07, 2017 12:51
[2017-05-07] MEDS: traMADol HCL 50 MG TAB PO PRN (16:28)
[2017-05-07 17:54] VITALS: BP 129/61; PULSE 82; RESP 16; TEMP 98.1; O2SAT 98
[2017-05-07] MEDS: DOCUSATE SODIUM 100 MG CAP PO SCH (22:25)
[2017-05-07] MEDS: PRAVASTATIN SOD 80 MG TAB PO SCH (22:29)
[2017-05-08 06:58] VITALS: BP 116/54; PULSE 65; RESP 16; TEMP 98.2; O2SAT 98
[2017-05-08] MEDS: DIVALPROEX DR 500 MG TABEC PO SCH ×2 (08:09→21:48)
[2017-05-08] MEDS: FUROSEMIDE 40 MG TAB PO SCH (08:09)
[2017-05-08] MEDS: NICOTINE 21 MG/24 HR PATCH T-DERMAL SCH (08:09)
[2017-05-08] MEDS: LISINOPRIL 5 MG TAB PO SCH (08:09)
[2017-05-08] MEDS: QUEtiapine FUMARATE 25 MG TAB PO SCH ×2 (08:10→21:48)
--- NOTE | 2017-05-08 14:55 | HHI.PYPN ---
Subjective Remarks Patient seen, chart reviewed and case discussed with nursing. Patient remains easily agitated when questioned. Review of Systems Except as stated in HPI: all other systems reviewed are Neg Objective Alert: Yes [place]: Person, Place, Date Mood: Calm Affect: Appropriate Memory Intact: Comment (impaired) Hallucinations: Other (denies) Delusions: No Delusion Type: Other (none) Suicidal: Ideation (denies) Homicidal: Ideation (denies) Insight/Judgment Impaired Vitals/IOs Vital Signs Date Time Temp Pulse Resp B/P (MAP) Pulse Ox O2 Delivery O2 Flow Rate FiO2 05/08/17 06:58 98.2 65 16 116/54 (74) 98 Intake and Output 05/08/17 05/08/17 05/08/17 07:59 15:59 23:59 Intake Total 360 ml Balance 360 ml Assessment & Plan Problem List: (1) DEMENTIA IN OTH DISEASES CLASSD ELSWHR W BEHAVIORAL DISTURB ICD Codes: F02.81 - DEMENTIA IN OTH DISEASES CLASSD ELSWHR W BEHAVIORAL DISTURB Status: Acute (2) OTHER ALZHEIMER'S DISEASE ICD Codes: G30.8 - OTHER ALZHEIMER'S DISEASE Assessment & Plan Estimated LOS: days continue medication regimen and evaluate for efficacy versus tolerability. Justification for Cont. Inpt. Unable to care for self. Bright Becerra MD May 08, 2017 14:55
[2017-05-08 17:31] VITALS: BP 127/60; PULSE 76; RESP 17; TEMP 97.9; O2SAT 98
[2017-05-08] MEDS: PRAVASTATIN SOD 80 MG TAB PO SCH (21:48)
[2017-05-08] MEDS: DOCUSATE SODIUM 100 MG CAP PO SCH (21:48)
[2017-05-08] MEDS: traMADol HCL 50 MG TAB PO PRN (21:52)
[2017-05-09 06:25] VITALS: BP 99/51; PULSE 60; RESP 16; TEMP 97.6; O2SAT 98
[2017-05-09] MEDS: DIVALPROEX DR 500 MG TABEC PO SCH ×2 (08:09→21:36)
[2017-05-09] MEDS: LISINOPRIL 5 MG TAB PO SCH (08:10)
[2017-05-09] MEDS: FUROSEMIDE 40 MG TAB PO SCH (08:10)
[2017-05-09] MEDS: NICOTINE 21 MG/24 HR PATCH T-DERMAL SCH (08:10)
[2017-05-09] MEDS: traMADol HCL 50 MG TAB PO PRN ×2 (08:10→21:35)
[2017-05-09] MEDS: QUEtiapine FUMARATE 25 MG TAB PO SCH ×2 (08:10→21:36)
--- NOTE | 2017-05-09 10:08 | HHI.PYPN ---
Subjective Remarks Patient seen and examined with nurse in coverage for Dr. Teixeira. Chart reviewed. Case discussed with nursing staff. No behavioral issues overnight. On my examination today, the patient is calm and pleasant. He denies any SI, HI or AVH. Denies side effects from medications. No physical complaints. Review of Systems ROS Limitations: Poor Historian Except as stated in HPI: all other systems reviewed are Neg Objective Alert: Yes [place]: Person, Place, Date Mood: Calm Affect: Appropriate Memory Intact: Comment (not formally assessed) Hallucinations: Other (denies AVH) Delusions: No Delusion Type: Other (no delusions) Suicidal: Ideation (denies SI) Homicidal: Ideation (denies HI) Insight/Judgment Poor Remarks No motor abnormalities noted Labs Labs reviewed. No recent labs. 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 Consider obtaining updated laboratories. Continue other medications and care as ordered. Justification for Cont. Inpt. Per Dr. Teixeira Discharge Planning Per Jose Donovan MD May 09, 2017 10:08
[2017-05-09 18:16] VITALS: BP 128/60; PULSE 80; RESP 17; TEMP 97.9; O2SAT 98
[2017-05-09] MEDS: PRAVASTATIN SOD 80 MG TAB PO SCH (21:36)
[2017-05-09] MEDS: DOCUSATE SODIUM 100 MG CAP PO SCH (21:36)
[2017-05-10 05:59] VITALS: BP 108/60; PULSE 61; RESP 16; TEMP 97.8; O2SAT 98
[2017-05-10] MEDS: NICOTINE 21 MG/24 HR PATCH T-DERMAL SCH (09:00)
--- NOTE | 2017-05-10 10:18 | HHI.PYPN ---
Subjective Remarks Patient seen in [place] with nurse Betty and counselor stanislaw, chart review, patient compliant medication. She and calm cooperative and pleasant with me now denies suicidality homicidality voices or visions. He continues to await word from to [facility] and rehabilitation related to placement. For now continue treatment Review of Systems Except as stated in HPI: all other systems reviewed are Neg Objective Alert: Yes [place]: Person, Place, Date Mood: Calm Affect: Appropriate Memory Intact: Comment (not formally assessed) Hallucinations: Other (denies AVH) Delusions: No Delusion Type: Other (no delusions) Suicidal: Ideation (denies SI) Homicidal: Ideation (denies HI) Insight/Judgment Poor Vitals/IOs Vital Signs Date Time Temp Pulse Resp B/P (MAP) Pulse Ox O2 Delivery O2 Flow Rate FiO2 05/10/17 05:59 97.8 61 16 108/60 (76) 98 Assessment & Plan Problem List: (1) OTHER ALZHEIMER'S DISEASE ICD Codes: G30.8 - OTHER ALZHEIMER'S DISEASE (2) DEMENTIA IN OTH DISEASES CLASSD ELSWHR W BEHAVIORAL DISTURB ICD Codes: F02.81 - DEMENTIA IN OTH DISEASES CLASSD ELSWHR W BEHAVIORAL DISTURB Status: Acute Assessment & Plan Estimated LOS: days patient continues to be calm cooperative with me compliant medications. Focusing on discharge Justification for Cont. Inpt. At this time patient will decompensate if not placed in an appropriate level of care Anders Teixeira MD May 10, 2017 10:18
[2017-05-10] MEDS: LISINOPRIL 5 MG TAB PO SCH (10:46)
[2017-05-10] MEDS: FUROSEMIDE 40 MG TAB PO SCH (10:46)
[2017-05-10] MEDS: DIVALPROEX DR 500 MG TABEC PO SCH ×2 (10:46→21:11)
[2017-05-10] MEDS: QUEtiapine FUMARATE 25 MG TAB PO SCH ×2 (10:47→21:00)
[2017-05-10 18:00] VITALS: BP 128/61; PULSE 71; RESP 17; TEMP 97.6; O2SAT 96
[2017-05-10] MEDS: PRAVASTATIN SOD 80 MG TAB PO SCH (21:11)
[2017-05-10] MEDS: DOCUSATE SODIUM 100 MG CAP PO SCH (21:11)
[2017-05-10] MEDS: traMADol HCL 50 MG TAB PO PRN (21:12)
[2017-05-11 05:15] VITALS: BP 118/58; PULSE 66; RESP 20; TEMP 97.6; O2SAT 97
[2017-05-11] MEDS: DIVALPROEX DR 500 MG TABEC PO SCH ×2 (09:00→21:15)
[2017-05-11] MEDS: FUROSEMIDE 40 MG TAB PO SCH (09:00)
[2017-05-11] MEDS: NICOTINE 21 MG/24 HR PATCH T-DERMAL SCH (09:00)
[2017-05-11] MEDS: QUEtiapine FUMARATE 25 MG TAB PO SCH ×2 (09:00→21:14)
[2017-05-11] MEDS: LISINOPRIL 5 MG TAB PO SCH (09:00)
--- NOTE | 2017-05-11 10:36 | HHI.PYPN ---
Subjective Remarks Patient seen in the day room with nurse Betty, chart review, patient compliant medication. Patient calm pleasant with me continue somewhat confused but no behavior problem. He continues to await word on placement. For now continue treatment Review of Systems Except as stated in HPI: all other systems reviewed are Neg Objective Alert: Yes [place]: Person, Place, Date Mood: Calm Affect: Appropriate Memory Intact: Comment (not formally assessed) Hallucinations: Other (denies AVH) Delusions: No Delusion Type: Other (no delusions) Suicidal: Ideation (denies SI) Homicidal: Ideation (denies HI) Insight/Judgment Poor Vitals/IOs Vital Signs Date Time Temp Pulse Resp B/P (MAP) Pulse Ox O2 Delivery O2 Flow Rate FiO2 05/11/17 05:15 97.6 66 20 118/58 (78) 97 Assessment & Plan Problem List: (1) OTHER ALZHEIMER'S DISEASE ICD Codes: G30.8 - OTHER ALZHEIMER'S DISEASE (2) DEMENTIA IN OTH DISEASES CLASSD ELSWHR W BEHAVIORAL DISTURB ICD Codes: F02.81 - DEMENTIA IN OTH DISEASES CLASSD ELSWHR W BEHAVIORAL DISTURB Status: Acute Assessment & Plan Estimated LOS: days patient continues somewhat confused and demented though no significant behavioral problems. Compliant medications Justification for Cont. Inpt. At the present time patient will decompensate if placed in the lower level of care Discharge Planning To be determined Anders Teixeira MD May 11, 2017 10:36
[2017-05-11] MEDS: DOCUSATE SODIUM 100 MG CAP PO SCH (21:14)
[2017-05-11] MEDS: PRAVASTATIN SOD 80 MG TAB PO SCH (21:15)
[2017-05-11] MEDS: traMADol HCL 50 MG TAB PO PRN (21:15)
[2017-05-12 05:33] VITALS: BP 128/60; PULSE 60; RESP 16; TEMP 97.7; O2SAT 98
[2017-05-12] MEDS: NICOTINE 21 MG/24 HR PATCH T-DERMAL SCH (09:00)
[2017-05-12] MEDS: FUROSEMIDE 40 MG TAB PO SCH (09:08)
[2017-05-12] MEDS: DIVALPROEX DR 500 MG TABEC PO SCH ×2 (09:09→21:04)
[2017-05-12] MEDS: LISINOPRIL 5 MG TAB PO SCH (09:09)
[2017-05-12] MEDS: QUEtiapine FUMARATE 25 MG TAB PO SCH ×2 (09:09→21:05)
--- NOTE | 2017-05-12 09:59 | HHI.PYPN ---
Subjective Remarks Patient seen in [place] with counselor Lluvia. Chart reviewed. Patient compliant medication. Patient continues calm cooperative pleasantly confused. Is tolerating well with delays related to placement. He denies suicidality of voices. There is no behavior problems. For now continue treatment Review of Systems Except as stated in HPI: all other systems reviewed are Neg Objective Alert: Yes [place]: Person, Place, Date Mood: Calm Affect: Appropriate Memory Intact: Comment (not formally assessed) Hallucinations: Other (denies AVH) Delusions: No Delusion Type: Other (no delusions) Suicidal: Ideation (denies SI) Homicidal: Ideation (denies HI) Insight/Judgment Poor Vitals/IOs Vital Signs Date Time Temp Pulse Resp B/P (MAP) Pulse Ox O2 Delivery O2 Flow Rate FiO2 05/12/17 05:33 97.7 60 16 128/60 (82) 98 Intake and Output 05/12/17 05/12/17 05/13/17 08:00 16:00 00:00 Intake Total 360 ml Balance 360 ml Assessment & Plan Problem List: (1) OTHER ALZHEIMER'S DISEASE ICD Codes: G30.8 - OTHER ALZHEIMER'S DISEASE (2) DEMENTIA IN OTH DISEASES CLASSD ELSWHR W BEHAVIORAL DISTURB ICD Codes: F02.81 - DEMENTIA IN OTH DISEASES CLASSD ELSWHR W BEHAVIORAL DISTURB Status: Acute Assessment & Plan Estimated LOS: days patient continues calm pleasant, pleasantly confused. No behavior problems. Continue to work on placement issues Justification for Cont. Inpt. At this time patient decompensate now placed in an appropriate level of care Discharge Planning To be determined Anders Teixeira MD May 12, 2017 09:59
[2017-05-12 16:47] VITALS: BP 123/60; PULSE 67; RESP 17; TEMP 97.9; O2SAT 98
[2017-05-12] MEDS: PRAVASTATIN SOD 80 MG TAB PO SCH (21:04)
[2017-05-12] MEDS: traMADol HCL 50 MG TAB PO PRN (21:05)
[2017-05-12] MEDS: DOCUSATE SODIUM 100 MG CAP PO SCH (21:05)
[2017-05-13 05:59] VITALS: BP 126/58; PULSE 66; RESP 17; TEMP 97.3; O2SAT 96
[2017-05-13] MEDS: NICOTINE 21 MG/24 HR PATCH T-DERMAL SCH (09:00)
[2017-05-13] MEDS: LISINOPRIL 5 MG TAB PO SCH (09:00)
[2017-05-13] MEDS: DIVALPROEX DR 500 MG TABEC PO SCH ×2 (09:08→20:32)
[2017-05-13] MEDS: QUEtiapine FUMARATE 25 MG TAB PO SCH ×2 (09:08→20:30)
[2017-05-13] MEDS: FUROSEMIDE 40 MG TAB PO SCH (09:08)
--- NOTE | 2017-05-13 13:33 | HHI.PYPN ---
Subjective Remarks Patient seen in [place] with nurse Aaron and counselor Cecelia. Chart review. Patient compliant medications. Patient showing good coping skills related to placement issues. Is showing no behavioral problems. For now continue treatment Review of Systems Except as stated in HPI: all other systems reviewed are Neg Objective Alert: Yes [place]: Person, Place, Date Mood: Calm Affect: Appropriate Memory Intact: Comment (not formally assessed) Hallucinations: Other (denies AVH) Delusions: No Delusion Type: Other (no delusions) Suicidal: Ideation (denies SI) Homicidal: Ideation (denies HI) Insight/Judgment Poor Vitals/IOs Vital Signs Date Time Temp Pulse Resp B/P (MAP) Pulse Ox O2 Delivery O2 Flow Rate FiO2 05/13/17 05:59 97.3 66 17 126/58 (80) 96 Intake and Output 05/13/17 05/13/17 05/14/17 08:00 16:00 00:00 Intake Total 240 ml Balance 240 ml Assessment & Plan Problem List: (1) OTHER ALZHEIMER'S DISEASE ICD Codes: G30.8 - OTHER ALZHEIMER'S DISEASE (2) DEMENTIA IN OTH DISEASES CLASSD ELSWHR W BEHAVIORAL DISTURB ICD Codes: F02.81 - DEMENTIA IN OTH DISEASES CLASSD ELSWHR W BEHAVIORAL DISTURB Status: Acute Assessment & Plan Estimated LOS: days patient continues calm pleasant. Pleasantly confused. Compliant medications. Continues to wait placement Justification for Cont. Inpt. At this time patient will decompensate is now placed in an appropriate level of care Discharge Planning To be determined Anders Teixeira MD May 13, 2017 13:33
[2017-05-13 18:14] VITALS: BP 126/36; PULSE 65; RESP 18; TEMP 97; O2SAT 98
[2017-05-13] MEDS: traMADol HCL 50 MG TAB PO PRN (20:32)
[2017-05-13] MEDS: DOCUSATE SODIUM 100 MG CAP PO SCH (20:34)
[2017-05-13] MEDS: PRAVASTATIN SOD 80 MG TAB PO SCH (20:34)
[2017-05-14 02:29] VITALS: BP 135/62; PULSE 69; RESP 18; TEMP 96.9; O2SAT 98
[2017-05-14 06:39] VITALS: BP 124/59; PULSE 60; RESP 20; TEMP 97.5; O2SAT 98
[2017-05-14] MEDS: NICOTINE 21 MG/24 HR PATCH T-DERMAL SCH (09:00)
[2017-05-14] MEDS: DIVALPROEX DR 500 MG TABEC PO SCH ×2 (11:03→21:22)
[2017-05-14] MEDS: LISINOPRIL 5 MG TAB PO SCH (11:04)
[2017-05-14] MEDS: QUEtiapine FUMARATE 25 MG TAB PO SCH ×2 (11:04→21:22)
[2017-05-14] MEDS: FUROSEMIDE 40 MG TAB PO SCH (11:04)
--- NOTE | 2017-05-14 17:33 | HHI.PYPN ---
Subjective Remarks Patient was seen and case discussed with nursing. Patient remains with poor insight into the reasons for his admission. He is behaving well on the unit, compliant with medications Objective Alert: Yes [place]: Person, Place, Date Mood: Calm Affect: Restricted Memory Intact: Comment (not formally assessed) Hallucinations: Other (denies AVH) Delusions: No Delusion Type: Other (no delusions) Suicidal: Ideation (denies SI) Homicidal: Ideation (denies HI) Insight/Judgment Poor Vitals/IOs Vital Signs Date Time Temp Pulse Resp B/P (MAP) Pulse Ox O2 Delivery O2 Flow Rate FiO2 05/14/17 06:39 97.5 60 20 124/59 (80) 98 Assessment & Plan Problem List: (1) OTHER ALZHEIMER'S DISEASE ICD Codes: G30.8 - OTHER ALZHEIMER'S DISEASE (2) DEMENTIA IN OTH DISEASES CLASSD ELSWHR W BEHAVIORAL DISTURB ICD Codes: F02.81 - DEMENTIA IN OTH DISEASES CLASSD ELSWHR W BEHAVIORAL DISTURB Status: Acute Assessment & Plan Continue current treatment plan Justification for Cont. Inpt. Patient would decompensate in a less restrictive setting Pete Reed DO May 14, 2017 17:33
[2017-05-14 18:00] VITALS: BP 135/62; PULSE 69; RESP 18; TEMP 96.9; O2SAT 98
[2017-05-14] MEDS: PRAVASTATIN SOD 80 MG TAB PO SCH (21:22)
[2017-05-14] MEDS: DOCUSATE SODIUM 100 MG CAP PO SCH (21:22)
[2017-05-14] MEDS: traMADol HCL 50 MG TAB PO PRN (21:25)
[2017-05-15 06:20] VITALS: BP 119/54; PULSE 58; RESP 16; TEMP 98; O2SAT 95
[2017-05-15] MEDS: DIVALPROEX DR 500 MG TABEC PO SCH ×2 (08:59→20:17)
[2017-05-15] MEDS: QUEtiapine FUMARATE 25 MG TAB PO SCH ×2 (08:59→20:17)
[2017-05-15] MEDS: LISINOPRIL 5 MG TAB PO SCH (08:59)
[2017-05-15] MEDS: FUROSEMIDE 40 MG TAB PO SCH (09:00)
[2017-05-15] MEDS: NICOTINE 21 MG/24 HR PATCH T-DERMAL SCH (09:00)
--- NOTE | 2017-05-15 15:54 | HHI.PYPN ---
Subjective Remarks Patient was seen and case discussed with nursing. Patient is pleasant and cooperative with exam. Behaving well on the unit. No outbursts. Social with others. Continues to have poor insight into his mental health and his admission Objective Alert: Yes [place]: Person, Place, Date Mood: Calm Affect: Restricted Memory Intact: Comment (not formally assessed) Hallucinations: Other (denies AVH) Delusions: No Delusion Type: Other (no delusions) Suicidal: Ideation (denies SI) Homicidal: Ideation (denies HI) Insight/Judgment Poor Vitals/IOs Vital Signs Date Time Temp Pulse Resp B/P (MAP) Pulse Ox O2 Delivery O2 Flow Rate FiO2 05/15/17 06:20 98.0 58 16 119/54 (75) 95 Assessment & Plan Problem List: (1) OTHER ALZHEIMER'S DISEASE ICD Codes: G30.8 - OTHER ALZHEIMER'S DISEASE (2) DEMENTIA IN OTH DISEASES CLASSD ELSWHR W BEHAVIORAL DISTURB ICD Codes: F02.81 - DEMENTIA IN OTH DISEASES CLASSD ELSWHR W BEHAVIORAL DISTURB Status: Acute Assessment & Plan Continue current treatment plan Justification for Cont. Inpt. Patient would decompensate in a less restrictive setting Pete Reed DO May 15, 2017 15:54
[2017-05-15] MEDS: DOCUSATE SODIUM 100 MG CAP PO SCH (20:17)
[2017-05-15] MEDS: PRAVASTATIN SOD 80 MG TAB PO SCH (20:17)
[2017-05-15] MEDS: traMADol HCL 50 MG TAB PO PRN (20:29)
[2017-05-16 06:25] VITALS: BP 139/64; PULSE 64; RESP 16; TEMP 97.7; O2SAT 96
[2017-05-16] MEDS: QUEtiapine FUMARATE 25 MG TAB PO SCH ×2 (08:41→21:13)
[2017-05-16] MEDS: FUROSEMIDE 40 MG TAB PO SCH (08:41)
[2017-05-16] MEDS: LISINOPRIL 5 MG TAB PO SCH (08:41)
[2017-05-16] MEDS: DIVALPROEX DR 500 MG TABEC PO SCH ×2 (08:44→21:00)
--- NOTE | 2017-05-16 15:13 | HHI.PYPN ---
Subjective Remarks Patient was seen and case discussed with nursing. Patient remains apathetic with poor insight into his reasons for admission and mental health. Continues to deny psychotic symptoms. Compliant with medications and behaving well on the unit Objective Alert: Yes [place]: Person, Place, Date Mood: Calm Affect: Blunted Memory Intact: Comment (not formally assessed) Hallucinations: Other (denies AVH) Delusions: No Delusion Type: Other (no delusions) Suicidal: Ideation (denies SI) Homicidal: Ideation (denies HI) Insight/Judgment Poor Vitals/IOs Vital Signs Date Time Temp Pulse Resp B/P (MAP) Pulse Ox O2 Delivery O2 Flow Rate FiO2 05/16/17 06:25 97.7 64 16 139/64 (89) 96 Assessment & Plan Problem List: (1) OTHER ALZHEIMER'S DISEASE ICD Codes: G30.8 - OTHER ALZHEIMER'S DISEASE (2) DEMENTIA IN OTH DISEASES CLASSD ELSWHR W BEHAVIORAL DISTURB ICD Codes: F02.81 - DEMENTIA IN OTH DISEASES CLASSD ELSWHR W BEHAVIORAL DISTURB Status: Acute Assessment & Plan Continue current treatment plan Justification for Cont. Inpt. Patient would decompensate in a less restrictive setting Pete Reed DO May 16, 2017 15:13
[2017-05-16 17:39] VITALS: BP 123/57; PULSE 67; RESP 17; TEMP 97.9; O2SAT 99
[2017-05-16] MEDS: DOCUSATE SODIUM 100 MG CAP PO SCH (21:13)
[2017-05-16] MEDS: LORazepam 0.5 MG TAB PO PRN (21:13)
[2017-05-16] MEDS: PRAVASTATIN SOD 80 MG TAB PO SCH (21:13)
[2017-05-16] MEDS: traMADol HCL 50 MG TAB PO PRN (21:55)
[2017-05-17 06:11] VITALS: BP_SYST 100; BP_SYST 157; BP_DIAS 59; BP_DIAS 72; PULSE 87; RESP 17; RESP 18; TEMP 98.2; O2SAT 96; O2SAT 97
[2017-05-17] MEDS: LISINOPRIL 5 MG TAB PO SCH (08:55)
[2017-05-17] MEDS: FUROSEMIDE 40 MG TAB PO SCH (08:55)
[2017-05-17] MEDS: QUEtiapine FUMARATE 25 MG TAB PO SCH ×2 (08:55→21:47)
[2017-05-17] MEDS: DIVALPROEX DR 500 MG TABEC PO SCH ×2 (08:56→21:47)
[2017-05-17 17:18] VITALS: BP 126/61; PULSE 67; RESP 18; TEMP 98.1; O2SAT 99
--- NOTE | 2017-05-17 20:46 | HHI.PYPN ---
Subjective Remarks Patient seen for follow up; chart reviewed. Patient found sitting in day room watching television. Patient continues to be noted to be pleasant with staff and peers. He states feeling "same ol, same ol" with mood lately being "alright ". He continues to report tolerating medications well. He is aware that he will present to mental health court tomorrow for a continuance hearing. Patient is aware that he was accepted to a living facility but paperwork by his family is pending. Denies any depressive, manic or psychotic symptoms. He continues to express wanting to connect with his daughter over reasons of his admission. Review of Systems Except as stated in HPI: all other systems reviewed are Neg Objective Alert: Yes [place]: Person, Place, Date Mood: Calm Affect: Restricted Memory Intact: Comment (not formally assessed) Hallucinations: Other (denies AVH) Delusions: No Delusion Type: Other (no delusions) Suicidal: Ideation (denies SI) Homicidal: Ideation (denies HI) Insight/Judgment limited insight, fair impulse control and judgment Vitals/IOs Vital Signs Date Time Temp Pulse Resp B/P (MAP) Pulse Ox O2 Delivery O2 Flow Rate FiO2 05/17/17 17:18 98.1 67 18 126/61 (82) 99 Assessment & Plan Problem List: (1) OTHER ALZHEIMER'S DISEASE ICD Codes: G30.8 - OTHER ALZHEIMER'S DISEASE (2) DEMENTIA IN OTH DISEASES CLASSD ELSWHR W BEHAVIORAL DISTURB ICD Codes: F02.81 - DEMENTIA IN OTH DISEASES CLASSD ELSWHR W BEHAVIORAL DISTURB Status: Acute Assessment & Plan Patient continues to be in good behavioral control, adhering to treatment. Patient will present to mental health court tomorrow for hearing on a continuance. Acceptance to a living facility approved, pending paperwork to be completed by his family. Continue current treatment. Justification for Cont. Inpt. At risk for decompensation if at lower level of care. Dane Angeles MD May 17, 2017 20:46
[2017-05-17] MEDS: DOCUSATE SODIUM 100 MG CAP PO SCH (21:46)
[2017-05-17] MEDS: LORazepam 0.5 MG TAB PO PRN (21:47)
[2017-05-17] MEDS: PRAVASTATIN SOD 80 MG TAB PO SCH (21:47)
[2017-05-17] MEDS: traMADol HCL 50 MG TAB PO PRN (21:50)
[2017-05-18 06:06] VITALS: BP 120/60; PULSE 70; RESP 18; TEMP 98.4; O2SAT 97
[2017-05-18] MEDS: LISINOPRIL 5 MG TAB PO SCH (09:06)
[2017-05-18] MEDS: QUEtiapine FUMARATE 25 MG TAB PO SCH ×2 (09:07→21:24)
[2017-05-18] MEDS: FUROSEMIDE 40 MG TAB PO SCH (09:07)
[2017-05-18] MEDS: DIVALPROEX DR 500 MG TABEC PO SCH ×2 (09:07→21:23)
--- NOTE | 2017-05-18 17:00 | HHI.PYPN ---
Subjective Remarks Patient seen for follow-up, chart review. Patient found sitting in hospital chair in the day room eating lunch but was able to engage in interview today. Patient seems to be more engaging and pleasant during interview and less guarded and irritable. Patient noted to be very related more organized in thought process today and less circumstantial. Patient states that she had a having some difficulty sleeping last evening but was tolerating medications well. Patient denies any perceptual disturbances at this time. Review of Systems Except as stated in HPI: all other systems reviewed are Neg Objective Alert: Yes [place]: Person, Place, Date Mood: Calm Affect: Restricted (less so today) Memory Intact: Comment (not formally assessed) Hallucinations: Other (denies AVH) Delusions: No Delusion Type: Other (no delusions) Suicidal: Ideation (denies SI) Homicidal: Ideation (denies HI) Insight/Judgment Poor insight, limited impulse control and judgment Labs Labs reviewed. Test 05/18/17 12:40 Valproic Acid (Depakene) Level 92 MCG/ML Vitals/IOs Vital Signs Date Time Temp Pulse Resp B/P (MAP) Pulse Ox O2 Delivery O2 Flow Rate FiO2 05/18/17 06:06 98.4 70 18 120/60 (80) 97 Assessment & Plan Problem List: (1) OTHER ALZHEIMER'S DISEASE ICD Codes: G30.8 - OTHER ALZHEIMER'S DISEASE (2) DEMENTIA IN OTH DISEASES CLASSD ELSWHR W BEHAVIORAL DISTURB ICD Codes: F02.81 - DEMENTIA IN OTH DISEASES CLASSD ELSWHR W BEHAVIORAL DISTURB Status: Acute Assessment & Plan Patient noted to be slightly more organized today, more engaging and less irritable. Patient did not attempt to swing at staff or had any behavioral dyscontrol since yesterday. We'll increase quetiapine to 12.5 mg a.m. and 25 mg at bedtime. Monitor for medication response and adverse drug reactions. Discharge planning still in progress with possibly of patient being able to return back to her living facility where she was living prior to her admission. Justification for Cont. Inpt. Patient at risk for further decompensation if at a lower level of care Dane Angeles MD May 18, 2017 17:00
--- NOTE | 2017-05-18 17:05 | HHI.PYPN ---
Subjective Remarks Patient seen for follow-up, chart reviewed. Patient was present during mental health court today for for revisit of continuance issue by Microbiology Director during last hearing. Upon this hearing continues was extended due to have patient having difficulty in finding placement. This is a 5 day course family has not fulfilled paperwork to have patient accepted to the adult living facility due to fear of having less income provided to the family as the facility will be detecting fees from patient's social security benefits to have patient living there. Alternative placement is currently in discussion and patient willing to adhere to recommendations at this time. Patient reports feeling "alright" denies any physical complaints, adhere to current treatment with no adverse drug reactions. Review of Systems Except as stated in HPI: all other systems reviewed are Neg Objective Alert: Yes [place]: Person, Place, Date Mood: Calm Affect: Restricted (less so today) Memory Intact: Comment (not formally assessed) Hallucinations: Other (denies AVH) Delusions: No Delusion Type: Other (no delusions) Suicidal: Ideation (denies SI) Homicidal: Ideation (denies HI) Insight/Judgment Limited insight, fair impulse control and judgment Labs Labs reviewed. Test 05/18/17 12:40 Valproic Acid (Depakene) Level 92 MCG/ML Vitals/IOs Vital Signs Date Time Temp Pulse Resp B/P (MAP) Pulse Ox O2 Delivery O2 Flow Rate FiO2 05/18/17 06:06 98.4 70 18 120/60 (80) 97 Assessment & Plan Problem List: (1) OTHER ALZHEIMER'S DISEASE ICD Codes: G30.8 - OTHER ALZHEIMER'S DISEASE (2) DEMENTIA IN OTH DISEASES CLASSD ELSWHR W BEHAVIORAL DISTURB ICD Codes: F02.81 - DEMENTIA IN OTH DISEASES CLASSD ELSWHR W BEHAVIORAL DISTURB Status: Acute Assessment & Plan Patient continues to have no behavioral dyscontrol since admission. Patient currently awaiting placement at a has been difficult as stated in subjective section of this note due to family limited cooperation for feeling paperwork for patient to be transferred to the adult living facility due to economical reasons. Patient continue current treatment. Patient's valproic acid level was found to be within therapeutic range. Discharge planning in progress Justification for Cont. Inpt. Patient at risk for further decompensation if at a lower level of care Dane Angeles MD May 18, 2017 17:05
[2017-05-18 18:35] VITALS: BP 137/63; PULSE 74; RESP 18; TEMP 97.9; O2SAT 99
[2017-05-18] MEDS: PRAVASTATIN SOD 80 MG TAB PO SCH (21:24)
[2017-05-18] MEDS: DOCUSATE SODIUM 100 MG CAP PO SCH (21:24)
[2017-05-18] MEDS: traMADol HCL 50 MG TAB PO PRN (21:24)
[2017-05-18] MEDS: LORazepam 0.5 MG TAB PO PRN (21:24)
[2017-05-19 06:08] VITALS: BP 118/60; PULSE 64; RESP 18; TEMP 97.8; O2SAT 95
[2017-05-19] MEDS: FUROSEMIDE 40 MG TAB PO SCH (10:00)
[2017-05-19] MEDS: QUEtiapine FUMARATE 25 MG TAB PO SCH ×2 (10:04→21:09)
[2017-05-19] MEDS: LISINOPRIL 5 MG TAB PO SCH (10:05)
[2017-05-19] MEDS: DIVALPROEX DR 500 MG TABEC PO SCH ×2 (10:05→21:09)
[2017-05-19 18:06] VITALS: BP 125/67; PULSE 69; RESP 18; TEMP 97.9; O2SAT 97
--- NOTE | 2017-05-19 18:14 | HHI.PYPN ---
Subjective Remarks Patient seen for follow up; chart reviewed. Patient states that his called him and felt surprised finding out that his has a heart problem. He also states feeling upset being told that he had a choice of moving back up to [place] where his siblings live and was told "they don't want you don't expect them to help out". Patient agrees to find a living facility here for now. Review of Systems Except as stated in HPI: all other systems reviewed are Neg Objective Alert: Yes [place]: Person, Place, Date Mood: Calm Affect: Restricted (less so today) Memory Intact: Comment (not formally assessed) Hallucinations: Other (denies AVH) Delusions: No Delusion Type: Other (no delusions) Suicidal: Ideation (denies SI) Homicidal: Ideation (denies HI) Insight/Judgment poor insight, fair impulse control and judgment Vitals/IOs Vital Signs Date Time Temp Pulse Resp B/P (MAP) Pulse Ox O2 Delivery O2 Flow Rate FiO2 05/19/17 18:06 97.9 69 18 125/67 (86) 97 Intake and Output 05/19/17 05/19/17 05/20/17 08:00 16:00 00:00 Intake Total 600 ml Balance 600 ml Assessment & Plan Problem List: (1) OTHER ALZHEIMER'S DISEASE ICD Codes: G30.8 - OTHER ALZHEIMER'S DISEASE (2) DEMENTIA IN OTH DISEASES CLASSD ELSWHR W BEHAVIORAL DISTURB ICD Codes: F02.81 - 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 Patient's family has not cooperated in providing documents to living facility for completion of application due to concerns of having less money available to them. Options for alternative housing is being explored. Justification for Cont. Inpt. At risk for further decompensation if at lower level of care. Dane Angeles MD May 19, 2017 18:13
[2017-05-19] MEDS: PRAVASTATIN SOD 80 MG TAB PO SCH (21:09)
[2017-05-19] MEDS: DOCUSATE SODIUM 100 MG CAP PO SCH (21:09)
[2017-05-19] MEDS: traMADol HCL 50 MG TAB PO PRN ×2 (22:09→22:11)
[2017-05-20 04:57] VITALS: BP 116/64; PULSE 64; RESP 16; TEMP 97.9; O2SAT 94
[2017-05-20] MEDS: FUROSEMIDE 40 MG TAB PO SCH (09:30)
[2017-05-20] MEDS: LISINOPRIL 5 MG TAB PO SCH (09:31)
[2017-05-20] MEDS: DIVALPROEX DR 500 MG TABEC PO SCH ×2 (09:31→21:13)
[2017-05-20] MEDS: QUEtiapine FUMARATE 25 MG TAB PO SCH ×2 (09:32→21:00)
[2017-05-20 13:15] VITALS: BP 155/70; PULSE 117; RESP 20; TEMP 99.9; O2SAT 94
[2017-05-20 14:15] VITALS: BP 108/53; PULSE 104; RESP 20; TEMP 99; O2SAT 95
--- NOTE | 2017-05-20 14:28 | HHI.PYPN ---
Subjective Remarks Patient seen for follow up; chart reviewed. Patient with recent fall while attempting to sit down on chair. He reports having slipped and fell sitting down but denies any pain or discomfort. He reports feeling "ok", no problem with appetite, mood in general has been "alright". Patient agrees to have xray of hips due to recent fall. Review of Systems Except as stated in HPI: all other systems reviewed are Neg Objective Alert: Yes [place]: Person, Place, Date Mood: Calm Affect: Appropriate Memory Intact: Comment (not formally assessed) Hallucinations: Other (denies AVH) Delusions: No Delusion Type: Other (no delusions) Suicidal: Ideation (denies SI) Homicidal: Ideation (denies HI) Insight/Judgment limited insight, fair impulse control and judgment Vitals/IOs Vital Signs Date Time Temp Pulse Resp B/P (MAP) Pulse Ox O2 Delivery O2 Flow Rate FiO2 05/20/17 04:57 97.9 64 16 116/64 (81) 94 Assessment & Plan Problem List: (1) OTHER ALZHEIMER'S DISEASE ICD Codes: G30.8 - OTHER ALZHEIMER'S DISEASE (2) DEMENTIA IN OTH DISEASES CLASSD ELSWHR W BEHAVIORAL DISTURB ICD Codes: F02.81 - 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 Patient to continue current treatment. Placement continues to be explored. Discharge planning in progress. Justification for Cont. Inpt. At risk for further decompensation if at lower level of care. Dane Angeles MD May 20, 2017 14:28
--- NOTE | 2017-05-20 16:02 | RADRPT ---
EXAM DATE/TIME: 05/20/2017 15:37 [place] COMPARISON: No previous studies available for comparison. INDICATIONS : Patient fell today and complains of right hip pain. MEDICAL HISTORY : None. SURGICAL HISTORY : None. ENCOUNTER: Initial ACUITY: 1 day PAIN SCORE: 10/10 LOCATION: Right Hip FINDINGS: The osseous structures of the right hip are intact. There are degenerative changes within the hip erika nt. No retained foreign body is seen. The remainder of the visualized bony structures are intact. CONCLUSION: 1. No acute fracture of the right hip identified. 2. 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 Aime Marshall MD on May 20, 2017 at 16:00 Board Certified Radiologist. This report was verified electronically.
[2017-05-20 18:15] VITALS: BP 135/64; PULSE 92; RESP 18; TEMP 98.1; O2SAT 94
[2017-05-20 18:18] VITALS: BP 135/64; PULSE 92; RESP 18; TEMP 98.1; O2SAT 94
[2017-05-20] MEDS: DOCUSATE SODIUM 100 MG CAP PO SCH (21:13)
[2017-05-20] MEDS: PRAVASTATIN SOD 80 MG TAB PO SCH (21:13)
[2017-05-20] MEDS: traMADol HCL 50 MG TAB PO PRN (21:14)
[2017-05-21 06:14] VITALS: BP 112/58; PULSE 65; RESP 19; TEMP 98; O2SAT 95
[2017-05-21] MEDS: QUEtiapine FUMARATE 25 MG TAB PO SCH ×2 (08:29→22:18)
[2017-05-21] MEDS: FUROSEMIDE 40 MG TAB PO SCH (08:29)
[2017-05-21] MEDS: traMADol HCL 50 MG TAB PO PRN ×2 (08:29→22:24)
[2017-05-21] MEDS: DIVALPROEX DR 500 MG TABEC PO SCH ×2 (08:30→22:19)
[2017-05-21] MEDS: LISINOPRIL 5 MG TAB PO SCH (08:30)
--- NOTE | 2017-05-21 15:29 | HHI.PYPN ---
Subjective Remarks Pt seen and discussed with staff. He has been cooperative and compliant with medications. No side effects. No agitation or aggression. No SI/HI Objective Alert: Yes [place]: Person, Place, Date Mood: Calm Affect: Appropriate Memory Intact: Comment (not formally assessed) Hallucinations: Other (denies AVH) Delusions: No Delusion Type: Other (no delusions) Suicidal: Ideation (denies SI) Homicidal: Ideation (denies HI) Insight/Judgment poor Vitals/IOs Vital Signs Date Time Temp Pulse Resp B/P (MAP) Pulse Ox O2 Delivery O2 Flow Rate FiO2 05/21/17 06:14 98.0 65 19 112/58 (76) 95 Assessment & Plan Problem List: (1) OTHER ALZHEIMER'S DISEASE ICD Codes: G30.8 - OTHER ALZHEIMER'S DISEASE (2) DEMENTIA IN OTH DISEASES CLASSD ELSWHR W BEHAVIORAL DISTURB ICD Codes: F02.81 - 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 Estimated LOS: days Justification for Cont. Inpt. risk of decompensation Liliane Jacobsen MD May 21, 2017 15:29
[2017-05-21 18:30] VITALS: BP 120/58; PULSE 79; RESP 18; TEMP 97.6; O2SAT 95
[2017-05-21] MEDS: PRAVASTATIN SOD 80 MG TAB PO SCH (22:18)
[2017-05-21] MEDS: DOCUSATE SODIUM 100 MG CAP PO SCH (22:19)
[2017-05-22 06:24] VITALS: BP 91/53; PULSE 70; RESP 18; TEMP 98; O2SAT 95
[2017-05-22] MEDS: DIVALPROEX DR 500 MG TABEC PO SCH ×2 (08:55→21:43)
[2017-05-22] MEDS: LISINOPRIL 5 MG TAB PO SCH (08:56)
[2017-05-22] MEDS: FUROSEMIDE 40 MG TAB PO SCH (08:56)
[2017-05-22] MEDS: QUEtiapine FUMARATE 25 MG TAB PO SCH ×2 (08:56→21:43)
--- NOTE | 2017-05-22 16:10 | HHI.PYPN ---
Subjective Remarks Pt seen and discussed with staff. He is compliant with medications and care. No behavioral problems. He is anxious about family problems. No SI/HI Objective Alert: Yes [place]: Person, Place, Date Mood: Calm Affect: Appropriate Memory Intact: Comment (impaired) Hallucinations: Other (denies AVH) Delusions: No Delusion Type: Other (no delusions) Suicidal: Ideation (denies SI) Homicidal: Ideation (denies HI) Insight/Judgment limited Vitals/IOs Vital Signs Date Time Temp Pulse Resp B/P (MAP) Pulse Ox O2 Delivery O2 Flow Rate FiO2 05/22/17 06:24 98.0 70 18 91/53 (66) 95 Intake and Output 05/22/17 05/22/17 05/23/17 08:00 16:00 00:00 Intake Total 240 ml Balance 240 ml Assessment & Plan Problem List: (1) OTHER ALZHEIMER'S DISEASE ICD Codes: G30.8 - OTHER ALZHEIMER'S DISEASE (2) DEMENTIA IN OTH DISEASES CLASSD ELSWHR W BEHAVIORAL DISTURB ICD Codes: F02.81 - 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 Estimated LOS: days Justification for Cont. Inpt. risk of decompensation Liliane Jacobsen MD May 22, 2017 16:10
[2017-05-22 18:19] VITALS: BP 119/81; PULSE 87; RESP 18; TEMP 98.6; O2SAT 97
[2017-05-22] MEDS: DOCUSATE SODIUM 100 MG CAP PO SCH (21:42)
[2017-05-22] MEDS: PRAVASTATIN SOD 80 MG TAB PO SCH (21:43)
[2017-05-22] MEDS: traMADol HCL 50 MG TAB PO PRN (21:44)
[2017-05-23 04:30] VITALS: BP 119/64; PULSE 69; RESP 17; TEMP 97.8; O2SAT 98
[2017-05-23] MEDS: QUEtiapine FUMARATE 25 MG TAB PO SCH (08:54)
[2017-05-23] MEDS: DIVALPROEX DR 500 MG TABEC PO SCH (08:54)
[2017-05-23] MEDS: LISINOPRIL 5 MG TAB PO SCH (08:57)
[2017-05-23] MEDS: FUROSEMIDE 40 MG TAB PO SCH (09:00)
[2017-05-23] MEDS ORDERED: FURO40TA PO (11:53)
[2017-05-23] MEDS ORDERED: LISI2.5T3 PO (11:53)
[2017-05-23] MEDS ORDERED: PRAV80TA PO (11:53)
[2017-05-23] MEDS ORDERED: DIVA500T PO (11:53)
[2017-05-23] MEDS ORDERED: DOCU1CAP39 PO (11:53)
[2017-05-23] MEDS ORDERED: QUET1TAB7 PO ×2 (11:53)
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
== END 2017-05-23 14:10 | DRG 57 ==
LOC: NEDAMB 17:24 → NEDA 19:55 → H270 20:50 → H260 04-15 12:55
PROVIDERS: ADMIT Student in an Organized Health Care Education/Training Program; ATTEND Student in an Organized Health Care Education/Training Program
DX: G30.8 Other Alzheimer's disease (principal); F02.81 Dementia in other diseases classified elsewhere, unspecified severity, with behavioral disturbance; G40.909 Epilepsy, unspecified, not intractable, without status epilepticus; R60.0 Localized edema; I10 Essential (primary) hypertension; F17.210 Nicotine dependence, cigarettes, uncomplicated; T79.6XXA Traumatic ischemia of muscle, initial encounter; E78.5 Hyperlipidemia, unspecified; G89.29 Other chronic pain; M54.5 Low back pain; Z79.899 Other long term (current) drug therapy; W06.XXXA Fall from bed, initial encounter
CPT/HCPCS: 73501; 76775; 80048; 80053; 80061; 80164; 80307; 82550; 82552; 82607; 82746; 83036; 85025; 85027; 93971; 99285